=== PATIENT | male | born 1950 | race Caucasian/White ===

== ENCOUNTER 2018-11-04 11:45 | Emergency (ER) | payer MEDICARE ==
[2018-11-04 11:56] VITALS: BP 170/87
[2018-11-04] MEDS ORDERED: NORMAL SALINE 1000 ML 1,000 ML IV ONE (12:53)
[2018-11-04] MEDS ORDERED: KETOROLAC TROMETHAMINE INJ/PF 30 MG/1 ML SDV IV ONE (12:53)
--- NOTE | 2018-11-04 12:56 | ER Document Report ---
ED General - General Chief Complaint: Back Pain Stated Complaint: BACK PAIN Time Seen by Provider: 11/04/18 12:43 Mode of Arrival: Medic Information source: Patient TRAVEL OUTSIDE OF THE [place] IN LAST 30 DAYS: No - HPI Notes: Patient presents complaining of midthoracic back pain. He denies any recent falls or trauma. Says that it has been present for several days. Says it is a sharp pain. Appears moderate to severe. It appears to radiate through the upper part of his back. He says it is associated with shortness of breath. Patient does not mention any new cough or fevers. The pain appears to be worse with movement better with rest. Patient denies any GI symptoms such as nausea vomiting or diarrhea. No abdominal pain. - Related Data Allergies/Adverse Reactions: No Known Allergies Allergy (Unverified 11/04/18 11:46) Past Medical History - General Information source: Patient - Social History Smoking Status: Current Every Day Smoker Frequency of alcohol use: None Drug Abuse: None Family History: Reviewed & Not Pertinent Patient has suicidal ideation: No Patient has homicidal ideation: No Renal/ Medical History: Denies: Hx Peritoneal Dialysis Review of Systems - Review of Systems Constitutional: denies: Chills, Fever Cardiovascular: Dyspnea. denies: Chest pain Respiratory: Short of breath. denies: Cough -: Yes All other systems reviewed and negative Physical Exam - Vital signs Vitals: Temp Pulse Resp BP Pulse Ox 98.1 F 79 22 H 170/87 H 96 11/04/18 11:52 11/04/18 11:52 11/04/18 11:52 11/04/18 11:52 11/04/18 11:52 - General General appearance: Appears well, Alert - HEENT Head: Normocephalic, Atraumatic Eyes: Normal Pupils: PERRL - Respiratory Respiratory status: No respiratory distress Chest status: Nontender Breath sounds: Rhonchi Chest palpation: Normal - Cardiovascular Rhythm: Regular Heart sounds: Normal auscultation Murmur: No - Abdominal Inspection: Normal Distension: No distension Bowel sounds: Normal Tenderness: Nontender Organomegaly: No organomegaly - Back Back: Tender - Patient is tender to palpation of the upper thoracic spine. No step-offs or deformities appreciated. - Extremities General upper extremity: Normal inspection, Nontender, Normal color, Normal ROM, Normal temperature General lower extremity: Normal inspection, Nontender, Normal color, Normal ROM, Normal temperature, Normal weight bearing. No: Annette's sign - Neurological Neuro grossly intact: Yes Cognition: Normal Orientation: AAOx4 [place] Coma Scale Eye Opening: Spontaneous [place] Coma Scale Verbal: Oriented [place] Coma Scale Motor: Obeys Commands Niyah Coma Scale Total: 15 Speech: Normal Motor strength normal: LUE, RUE, LLE, RLE Sensory: Normal - Psychological Associated symptoms: Normal affect, Normal mood - Skin Skin Temperature: Warm Skin Moisture: Dry Skin Color: Normal Course - Re-evaluation Re-evalutation: 11/04/18 13:53 1 reexamined patient and nurse informed me that he had pulled his IV out and left. I went outside and found the patient sitting on the ground leaning next to a post. Patient states that he would rather go home. He states that we have not done anything for his pain. I was able to convince the patient to come back and and allow us to do further treatment. He has had IV Toradol. He has not had laboratories or x-rays yet. Patient states that he wishes he was . However patient is not actively suicidal. No evident that the patient is psychotic. There is no active psychosis. I do not feel at this time that I have grounds for involuntary commitment. 11/04/18 14:01 Nurse just informed me that patient is once again left. I am not able to locate the patient at this time. I have considered if I have grounds for involuntary commitment since the patient states that he would rather be . However pat ient states that he has felt this way for a long time. He states he is not actively suicidal and he does not have a plan. I do not feel that I have grounds for involuntary commitment at this time the patient is considered eloped. - Vital Signs Vital signs: Temp Pulse Resp BP Pulse Ox 98.1 F 79 22 H 170/87 H 96 11/04/18 11:52 11/04/18 11:52 11/04/18 11:52 11/04/18 11:52 11/04/18 11:52 - EKG Interpretation by Me EKG shows normal: Sinus rhythm Rate: Normal - 72 Rhythm: NSR [place]/QRS: No: Right axis deviation, Left axis deviation - Transfer of Care Care transferred to following provider: Crow Notes: 11/04/18 13:56 care turned over at 2pm Discharge - Discharge Clinical Impression: Thoracic back pain Qualifiers: Chronicity: acute Back pain laterality: midline Qualified Code(s): M54.6 - Pain in thoracic spine Disposition: ELOPED
--- NOTE | 2018-11-04 17:28 | EKG REPORT ---
SEVERITY:- NORMAL ECG - SINUS RHYTHM : Confirmed by: Lizet Mandel MD 04-Nov-2018 17:28:17
== END 2018-11-04 13:55 | disposition left against medical advice (07) ==
LOC: ER 11:45
DX: M54.6 Pain in thoracic spine (principal); R06.02 Shortness of breath; F17.200 Nicotine dependence, unspecified, uncomplicated; Z53.20 Procedure and treatment not carried out because of patient's decision for unspecified reasons
CPT/HCPCS: 93005; 93010; J1885; J7030; 96374; 99283

== ENCOUNTER 2019-01-25 14:02 | Inpatient (IN) | payer MEDICARE ==
--- NOTE | 2019-01-25 14:30 | ER Document Report ---
ED Medical Screen (RME) - General Chief Complaint: S/S of Possible Stroke Stated Complaint: POSSIBLE STROKE Time Seen by Provider: 01/25/19 14:24 Mode of Arrival: Wheelchair Information source: Patient Notes: Patient is a 68-year-old male with no documented past medical history as patient does not see a physician presenting with complaints of left-sided weakness that started on Friday. Patient has profound left-sided neurological deficits to the upper and lower extremity, he has left-sided facial drooping and slurred speech. Family members are at bedside with him. I have greeted and performed a rapid initial assessment of this patient. A comprehensive ED assessment and evaluation of the patient, analysis of test results and completion of the medical decision making process will be conducted by additional ED providers. I have specifically instructed the patient or family members with the patient to immediately return to any nursing staff should anything change in the patient's condition or with their chief complaint. This medical record was dictated with voice recognizing software. There may be grammatical, syntax errors that are unintended. TRAVEL OUTSIDE OF THE [place] IN LAST 30 DAYS: No - Related Data Allergies/Adverse Reactions: No Known Allergies Allergy (Unverified 11/04/18 11:46) Past Medical History - Social History Frequency of alcohol use: None Drug Abuse: None Renal/ Medical History: Denies: Hx Peritoneal Dialysis Physical Exam - Vital signs Vitals: Temp Pulse Resp BP Pulse Ox 97.4 F 110 H 16 188/117 H 95 01/25/19 14:11 01/25/19 14:11 01/25/19 14:11 01/25/19 14:11 01/25/19 14:11 Course - Vital Signs Vital signs: Temp Pulse Resp BP Pulse Ox 97.4 F 110 H 16 188/117 H 95 01/25/19 14:11 01/25/19 14:11 01/25/19 14:11 01/25/19 14:11 01/25/19 14:11
--- NOTE | 2019-01-25 15:05 | EKG REPORT ---
SEVERITY:- OTHERWISE NORMAL ECG - SINUS TACHYCARDIA : Confirmed by: Lizet Mandel MD 25-Jan-2019 15:04:24
--- NOTE | 2019-01-25 15:08 | RADIOLOGY REPORT (SQ) ---
EXAM DESCRIPTION: CT HEAD WITHOUT COMPLETED DATE/TIME: 01/25/2019 2:41 pm REASON FOR STUDY: LEFT SIDED WEAKNESS COMPARISON: None. TECHNIQUE: Axial images acquired through the brain without intravenous contrast. Images reviewed wi th bone, brain and subdural windows. Additional sagittal and coronal reconstructions were generated. Images stored on PACS. All CT scanners at this facility use dose modulation, iterative reconstruction, and/or weight based d osing when appropriate to reduce radiation dose to as low as reasonably achievable (ALARA). [facility]: Dose Right [facility]: CareDose [facility]: Dose Right [facility]: Teradose 4D [facility]: Smart Technologies RADIATION DOSE: CT Rad equipment meets quality standard of care and radiation dose reduction techniq ues were employed. CTDIvol: 53.2 mGy. DLP: 1044 mGy-cm. mGy. LIMITATIONS: None. FINDINGS: The patchy areas of hypoattenuation within the supratentorial periventricular and subcorti chalino white matter are nonspecific and could represent the sequela of chronic microvascular ischemia. There is no acute intracranial hemorrhage, vascular territorial infarct, extra-axial fluid collection , mass effect or midline shift. There is no effacement of cerebral sulci or basal subarachnoid ciste rns. The white-white matter differentiation is preserved. The caliber the ventricles is concordant w ith the degree of sulcation. The orbits and globes are intact. The paranasal sinuses and the mastoid air cells are clear. There is no fracture of the calvarium. IMPRESSION: Probable sequela of chronic microvascular ischemia without a superimposed acute intracra nial abnormality. If there is persistent clinical concern for an acute CVA correlation with MRI is r ecommended. EVIDENCE OF ACUTE STROKE: NO. COMMENT: Quality ID # [id number]: Final reports with documentation of one or more dose reduction techniques (e.g., Automated exposure control, adjustment of the mA and/or kV according to patient size, use of iterative reconstruction technique) TECHNICAL DOCUMENTATION: JOB ID: [id number] [employer] All Rights Reserved Reading location - IP/workstation name: [email or web address]
--- NOTE | 2019-01-25 15:10 | RADIOLOGY REPORT (SQ) ---
EXAM DESCRIPTION: CHEST SINGLE VIEW COMPLETED DATE/TIME: 01/25/2019 2:54 pm REASON FOR STUDY: LEFT SIDED WEAKNESS COMPARISON: None. EXAM PARAMETERS: NUMBER OF VIEWS: One view. TECHNIQUE: Single frontal radiographic view of the chest acquired. RADIATION DOSE: NA LIMITATIONS: None. FINDINGS: LUNGS AND PLEURA: No consolidation, pleural effusion or pneumothorax. MEDIASTINUM AND HILAR STRUCTURES: No mediastinal or hilar contour abnormality. HEART AND VASCULAR STRUCTURES: The cardiac silhouette and pulmonary vasculature are within normal drake its. BONES: No acute findings. HARDWARE: None in the chest. OTHER: No other finding. IMPRESSION: No acute intracranial abnormality. TECHNICAL DOCUMENTATION: JOB ID: [id number] [employer]- All Rights Reserved Reading location - IP/workstation name: [email or web address]
[2019-01-25 15:31] LABS: ABSOLUTE BASOPHILS # (AUTO) 0.1 10^3/uL (0.0-0.2); ABSOLUTE LYMPHOCYTES (AUTO) 2.8 10^3/uL (0.5-4.7); ABSOLUTE MONOCYTES (AUTO) 0.8 10^3/uL (0.1-1.4); ABSOLUTE NEUT (AUTO) 10.7 10^3/uL (1.7-8.2); BASOPHILS % (AUTO) 0.4 % (0-2); EOSINOPHILS % (AUTO) 0.1 % (0-6); HEMOGLOBIN 15.9 g/dL (13.5-17.0); LYMPHOCYTES % (AUTO) 19.6 % (13-45); MEAN CORPUSCULAR HEMOGLOBIN 31.3 pg (27.0-33.4); MEAN CORPUSCULAR HGB CONC 33.8 g/dL (32.0-36.0); MEAN CORPUSCULAR VOLUME 92 fl (80-97); MONOCYTES % (AUTO) 5.4 % (3-13); PLATELET COUNT 241 10^3/uL (150-450); RED BLOOD COUNT 5.09 10^6/uL (4.35-5.55); RED CELL DISTRIBUTION WIDTH 14.1 % (11.5-14.0); SEGMENTED NEUTROPHILS % (AUTO) 74.5 % (42-78); TOTAL CELLS COUNTED % (AUTO) 100 %; WHITE BLOOD COUNT 14.4 10^3/uL (4.0-10.5)
[2019-01-25 15:37] LABS: INTERNATIONAL RATION (INR) 1.02; PARTIAL THROMBOPLASTIN TIME 26.7 SEC (23.5-35.8)
[2019-01-25 15:40] LABS: PROTHROMBIN TIME 13.4 SEC (11.4-15.4)
[2019-01-25 15:54] LABS: ALBUMIN 4.3 g/dL (3.5-5.0); ALKALINE PHOSPHATASE 146 U/L (38-126); ANION GAP 11 (5-19); ASPARTATE AMINO TRANSFERASE 146 U/L (17-59); BILIRUBIN,DIRECT 0.3 mg/dL (0.0-0.4); BLOOD UREA NITROGEN 10 mg/dL (7-20); CALCIUM 9.7 mg/dL (8.4-10.2); CARBON DIOXIDE 31 mmol/L (22-30); CHLORIDE 95 mmol/L (98-107); CREATINE KINASE 342 U/L (55-170); GLUCOSE 105 mg/dL (75-110); POTASSIUM 4.1 mmol/L (3.6-5.0); TOTAL PROTEIN 8.4 g/dL (6.3-8.2)
[2019-01-25 16:06] LABS: CREATINE KINASE MB 4.88 ng/mL (<4.55)
[2019-01-25 16:10] LABS: TROPONIN I 0.19 ng/mL
[2019-01-25] MEDS ORDERED: ONDANSETRON HCL INJ/PF 4 MG/2 ML SDV IV ONE (18:07)
--- NOTE | 2019-01-25 18:11 | ER Document Report ---
ED General - General Chief Complaint: S/S of Possible Stroke Stated Complaint: POSSIBLE STROKE Time Seen by Provider: 01/25/19 14:24 Mode of Arrival: Wheelchair Notes: Patient is a 68-year-old male who presents the emergency department with left- sided weakness. Patient states that his symptoms started on Friday and yesterday his symptoms got progressively worse. Patient states that he fell today. He was able to lean on a wall and slid down it. He sustained an abrasion to the area. Patient also states that he felt nauseous. TRAVEL OUTSIDE OF THE [place] IN LAST 30 DAYS: No - Related Data Allergies/Adverse Reactions: No Known Allergies Allergy (Unverified 11/04/18 11:46) Past Medical History - General Information source: Patient - Social History Smoking Status: Current Every Day Smoker Frequency of alcohol use: None Drug Abuse: None Family History: Reviewed & Not Pertinent Patient has suicidal ideation: No Patient has homicidal ideation: No Renal/ Medical History: Denies: Hx Peritoneal Dialysis Review of Systems - Review of Systems Notes: REVIEW OF SYSTEMS: CONSTITUTIONAL : Denies recent illness. Denies recent unintentional weight loss. Denies fever, chills, or sweats. EENT: Denies eye, ear, throat, or mouth pain, discharge, or symptoms. Denies nasal or sinus congestion. CARDIOVASCULAR: Denies chest pain. RESPIRATORY: Denies shortness of breath, cough, congestion, difficulty breathing, or wheezing. GASTROINTESTINAL: Denies nausea, vomiting, and diarrhea. Denies abdominal pain. Denies constipation. GENITOURINARY: Denies difficulty urinating, burning, blood in urine, urgency or frequency. MUSCULOSKELETAL: Denies neck and back pain. Denies joint pain or swelling. SKIN: Denies rash, itchiness, or lesions HEMATOLOGIC : Denies easy bruising or bleeding. LYMPHATIC: Denies swollen, painful, enlarged glands. NEUROLOGICAL: PSYCHIATRIC: Denies stress, anxiety, alteration in sleep patterns, or depression. All other systems reviewed and negative. Physical Exam - Vital signs Vitals: Temp Pulse Resp BP Pulse Ox 97.4 F 110 H 16 188/117 H 95 01/25/19 14:11 01/25/19 14:11 01/25/19 14:11 01/25/19 14:11 01/25/19 14:11 - Notes Notes: PHYSICAL EXAMINATION: GENERAL: Appears well, healthy, well-nourished, no acute distress. HEAD: Normocephalic, atraumatic. EYES: PERRL, conjunctiva normal, all extraocular movements intact, sclera nonicteric ENT: Dry mucous membranes. NECK: Supple, no noticeable swelling, redness, rash. Normal range of motion. LUNGS: Equal breath sounds bilaterally and clear to auscultation. No wheezes rales or rhonchi. CARDIOVASCULAR: S1-S2, regular rate, regular rhythm. Radial pulses 2+, normal. ABDOMEN: Normoactive bowel sounds. Soft, nontender, no guarding, no rebound tenderness, and no masses palpated. EXTREMITIES: Flaccid left upper and lower extremities. Weak upper right and lower right extremities NEUROLOGICAL: Left-sided facial droop. 0 out of 5 strength on left side and flaccid. 3/5 strength on the right side. PSYCH: Normal mood, normal affect. SKIN: Warm, dry. No rash, lesions, ulcerations noted. Normal skin turgor. Course - Re-evaluation Re-evalutation: 01/25/19 18:11 Patient has some microvascular changes. Chest x-ray is normal. Patient has a leukocytosis of 14,000. Patient is mildly hypo-knee treatment. This is most likely due to dehydration. Troponin is indeterminate. Patient is denying any chest pain at this time. Awaiting on urinalysis. Due to the patient having left-sided flaccidness, I will call hospitalist for admission. 01/25/19 18:15 I spoke with Velvet Mills NP. Patient will be admitted to [facility]. - Vital Signs Vital signs: Temp Pulse Resp BP Pulse Ox 97.4 F 110 H 25 H 174/88 H 96 01/25/19 14:11 01/25/19 14:11 01/25/19 20:14 01/25/19 20:14 01/25/19 20:14 - Laboratory Result Diagrams: 01/25/19 15:18 01/25/19 15:18 Laboratory results interpreted by me: 01/25/19 01/25/19 01/25/19 15:18 15:18 15:18 WBC 14.4 H RDW 14.1 H Absolute Neuts (auto) 10.7 H Sodium 136.7 L Chloride 95 L Carbon Dioxide 31 H AST 146 H Alkaline Phosphatase 146 H Creatine Kinase 342 H CK-MB (CK-2) 4.88 H Total Protein 8.4 H - EKG Interpretation by Me Additional EKG results interpreted by me: 01/25/19 18:25 Sinus tachycardia. Rate 100. CO 132; QRS 76; QT 368; QTc 475. No ST elevations or depressions noted. Discharge - Discharge Clinical Impression: Stroke Qualifiers: CVA mechanism: unspecified Qualified Code(s): I63.9 - Cerebral infarction, unspecified Condition: Stable Disposition: HOME, SELF-CARE Admitting Provider: Mei (Hospitalist) Unit Admitted: [facility]
[2019-01-25] MEDS ORDERED: HYDRALAZINE HCL INJ/PF 20 MG/1 ML SDV IV ONE (18:20)
[2019-01-25] MEDS ORDERED: ONDANSETRON 4 MG TAB.RAPDIS PO PRN (18:26)
[2019-01-25] MEDS ORDERED: MAGNESIUM HYDROXIDE SUSP 30 ML UDCUP PO PRN (18:26)
[2019-01-25] MEDS ORDERED: LABETALOL HCL INJ 20 MG/4 ML DISP.SYRIN IV PRN (18:26)
[2019-01-25] MEDS ORDERED: ACETAMINOPHEN 325 MG TABLET PO PRN (18:26)
[2019-01-25] MEDS ORDERED: DOCUSATE SODIUM 100 MG CAPSULE PO PRN (18:26)
--- NOTE | 2019-01-25 19:15 | PDOC H&P ---
History of Present Illness Admission Date/PCP: 01/25/19 18:31 Patient complains of: Slurred speech, left-sided weakness, fall History of Present Illness: KASHMIR CASTRO is a 68 year old male with a limited past medical history secondary to poor healthcare utilization, but known to have hypertension, and tobacco dependence with continuous use. Patient presented to the emergency department today after a fall at home when he was unable to get back up. Family members report that he has had proximately 2 months of slurred speech and progressively worsening weakness. However, his left-sided weakness is significantly worse from his baseline. Unknown onset as he was last seen over a week ago. Patient reports that he began having falls on Friday. Evaluation in the emergency department revealed tachycardia 110, hypertension 188/117 leukocytosis (WBCs 14.4), normal coags, slight hyponatremia (136.7), elevated bicarb at 31, normal renal function, mildly elevated LFTs (AST 146, alk phos 146, ALT 96), CK 342, and an elevated troponin of 0.190. Chest x-ray is benign. EKG shows normal sinus rhythm without ST segment changes. Head CT revealed chronic microvascular ischemic changes and was negative for acute CVA. He is referred to the hospitalist service for admission and management of the above-stated complaints and findings. Past Medical History Cardiac Medical History: Reports: Hyperlipidema, Hypertension Pulmonary Medical History: Reports: None EENT Medical History: Reports: None Neurological Medical History: Reports: None Endocrine Medical History: Reports: None Renal/ Medical History: Reports: None Malignancy Medical History: Reports: None GI Medical History: Reports: Gastroesophageal Reflux Disease Musculoskeltal Medical History: Reports: None Psychiatric Medical History: Reports: Tobacco Dependency Traumatic Medical History: Reports: None Hematology: Reports: None Infectious Medical History: Reports: None Past Surgical History Past Surgical History: Reports: Orthopedic Surgery Social History Information Source: Patient, Relative Lives with: Alone Smoking Status: Current Every Day Smoker Cigarettes Packs Per Day: 0.5 Frequency of Alcohol Use: Rare Hx Recreational Drug Use: No Drugs: None Hx Prescription Drug Abuse: No - Advance Directive Resuscitation Status: Do Not Resuscitate Surrogate healthcare decision maker:: The patient's son, Kashmir Castro, Family History Family History: Reviewed & Not Pertinent Parental Family History Reviewed: Yes Children Family History Reviewed: Yes Sibling(s) Family History Reviewed.: Yes Medication/Allergy Allergies/Adverse Reactions: No Known Allergies Allergy (Unverified 11/04/18 11:46) Review of Systems Constitutional: PRESENT: anorexia, weakness. ABSENT: chills, fever(s), headache(s), weight gain, weight loss Eyes: ABSENT: visual disturbances Ears: ABSENT: hearing changes Cardiovascular: ABSENT: chest pain, dyspnea on exertion, edema, orthropnea, palpitations Respiratory: ABSENT: cough, hemoptysis Gastrointestinal: PRESENT: dysphagia, nausea. ABSENT: abdominal pain, constipation, diarrhea, hematemesis, hematochezia, vomiting Genitourinary: ABSENT: dysuria, hematuria Musculoskeletal: ABSENT: joint swelling Integumentary: ABSENT: rash, wounds Neurological: PRESENT: as per HPI, abnormal speech, focal weakness, frequent falls, lack of coordination, weakness. ABSENT: abnormal gait, confusion, dizziness, syncope Psychiatric: ABSENT: anxiety, depression, homidical ideation, suicidal ideation Endocrine: ABSENT: cold intolerance, heat intolerance, polydipsia, polyuria Hematologic/Lymphatic: ABSENT: easy bleeding, easy bruising Physical Exam Vital Signs: Temp Pulse Resp BP Pulse Ox 97.4 F 110 H 16 188/117 H 95 01/25/19 14:11 01/25/19 14:11 01/25/19 14:11 01/25/19 14:11 01/25/19 14:11 Intake & Output 01/24/19 01/25/19 01/26/19 06:59 06:59 06:59 Weight 58.967 kg General appearance: PRESENT: no acute distress, cooperative, disheveled, thin, well-developed Head exam: PRESENT: atraumatic, normocephalic Eye exam: PRESENT: conjunctiva pink, EOMI, PERRLA. ABSENT: scleral icterus Ear exam: PRESENT: normal external ear exam Mouth exam: PRESENT: moist, tongue midline Teeth exam: PRESENT: edentulous Neck exam: ABSENT: carotid bruit, JVD, lymphadenopathy, thyromegaly Respiratory exam: PRESENT: clear to auscultation kourtney, symmetrical, unlabored. ABSENT: rales, rhonchi, wheezes Cardiovascular exam: PRESENT: RRR, +S1, +S2. ABSENT: diastolic murmur, rubs, s ystolic murmur Pulses: PRESENT: normal dorsalis pedis pul Vascular exam: PRESENT: normal capillary refill GI/Abdominal exam: PRESENT: normal bowel sounds, soft. ABSENT: distended, guarding, mass, organolmegaly, rebound, tenderness Rectal exam: PRESENT: deferred Extremities exam: PRESENT: full ROM. ABSENT: calf tenderness, clubbing, pedal edema Neurological exam: PRESENT: alert, awake, oriented to person, oriented to place, oriented to time, oriented to situation, other - Slurred speech with left-sided droop, patient also with sided weakness: right starch mangle tender 5/5, left starch mangle tender 3/5, right dorsiflexion 3/5, left dorsiflexion 1/5. ABSENT: motor sensory deficit Psychiatric exam: PRESENT: appropriate affect, normal mood. ABSENT: homicidal ideation, suicidal ideation Skin exam: PRESENT: dry, intact, warm. ABSENT: cyanosis, rash Results Laboratory Results: 01/25/19 15:18 01/25/19 15:18 01/25/19 01/25/19 15:18 15:18 WBC 14.4 H RBC 5.09 Hgb 15.9 Hct 47.0 MCV 92 MCH 31.3 MCHC 33.8 RDW 14.1 H Plt Count 241 Seg Neutrophils % 74.5 Sodium 136.7 L Potassium 4.1 Chloride 95 L Carbon Dioxide 31 H Anion Gap 11 BUN 10 Creatinine 0.75 Est GFR ( Amer) > 60 Glucose 105 Calcium 9.7 Total Bilirubin 1.0 AST 146 H Alkaline Phosphatase 146 H Total Protein 8.4 H Albumin 4.3 01/25/19 01/25/19 15:18 15:18 Creatine Kinase 342 H CK-MB (CK-2) 4.88 H Troponin I 0.190 Impressions: Chest X-Ray 01/25/19 14:25 IMPRESSION: No acute intracranial abnormality. Head CT 01/25/19 14:25 IMPRESSION: Probable sequela of chronic microvascular ischemia without a supe rimposed acute intracranial abnormality. If there is persistent clinical concern for an acute CVA correlation with MRI is recommended. EVIDENCE OF ACUTE STROKE: NO. Assessment and Plan - Diagnosis (1) CVA (cerebral vascular accident) Qualifiers: CVA mechanism: unspecified Qualified Code(s): I63.9 - Cerebral infarction, unspecified Is this a current diagnosis for this admission?: Yes Plan: Possible CVA as patient presents with slurred speech and left-sided weakness, worsened approximately [address] is negative. Head MRI pending. Carotid Doppler pending. Check lipid panel and A1c with a.m. lab work. Patient is admitted to [facility] on continuous cardiac telemetry. Daily aspirin, Plavix, statin therapy. The patient was not on daily aspirin therapy prior to admission. PT/OT/ST consultations. Discharge planning consulted. (2) Slurred speech Is this a current diagnosis for this admission?: Yes Plan: Secondary to #1. Evaluation and management as above. (3) Left-sided weakness Is this a current diagnosis for this admission?: Yes Plan: Secondary to #1. Evaluation and management as above. (4) Hypertension Is this a current diagnosis for this admission?: Yes Plan: Permissive hypertension x24 hours secondary to presumed acute CVA. IV labetalol as needed for blood pressure control. The patient is not on home antihypertensive therapies. (5) Tobacco dependence Is this a current diagnosis for this admission?: Yes Plan: Smoking cessation encouraged. Nicotine or placement therapies provided. (6) Elevated LFTs Is this a current diagnosis for this admission?: Yes Plan: Likely secondary to dehydration; trial IV fluids. Serum EtOH pending. Follow-up chemistry. (7) Elevated troponin Is this a current diagnosis for this admission?: Yes Plan: Troponin is elevated to 0.190. He adamantly denies chest pain. EKG shows sinus rhythm without ST segment changes. We will monitor on continuous cardiac telemetry. Daily aspirin and statin therapy. Trend troponins. (8) Falls Qualifiers: Encounter type: initial encounter Qualified Code(s): W19.XXXA - Unspecified fall, initial encounter Is this a current diagnosis for this admission?: Yes Plan: Secondary to #1. We will also check UDS and serum EtOH. PT/OT consultation pending. Fall risk. - Time Time Spent with patient: 35 or more minutes Smoking Cessation Education: 3 to 10 minutes Medications reviewed and adjusted accordingly: Yes Anticipated discharge: Home with Homehealth Within: within 48 hours
--- NOTE | 2019-01-25 19:57 | RADIOLOGY REPORT (SQ) ---
EXAM DESCRIPTION: FOREARM LEFT COMPLETED DATE/TIME: 01/25/2019 6:28 pm REASON FOR STUDY: fall COMPARISON: None. NUMBER OF VIEWS: Two views. TECHNIQUE: Two radiographic images acquired of the left forearm, including elbow and wrist in at [address] st one projection. LIMITATIONS: None. FINDINGS: MINERALIZATION: Normal. BONES: No acute fracture. No worrisome bone lesions. SOFT TISSUES: No obvious swelling. Metallic bb in the lateral mid forearm soft tissue. OTHER: No other significant finding. IMPRESSION: No fracture. TECHNICAL DOCUMENTATION: JOB ID: [id number] [email or web address]- All Rights Reserved Reading location - IP/workstation name: [email or web address]
[2019-01-25 20:37] LABS: APPEARANCE,URINE CLEAR; BILIRUBIN,URINE NEGATIVE (NEGATIVE); COLOR,URINE YELLOW; GLUCOSE, URINE NEGATIVE (NEGATIVE); KETONES,URINE NEGATIVE (NEGATIVE); PROTEIN,URINE 30 mg/dL (NEGATIVE); URINE SPECIFIC GRAVITY 1.016; UROBILINOGEN,URINE NEGATIVE mg/dL (<2.0)
[2019-01-25 20:47] LABS: URINE AMPHETAMINES SCREEN NEGATIVE; URINE BARBITURATES SCREEN NEGATIVE; URINE BENZODIAZEPINES SCREEN NEGATIVE; URINE COCAINE SCREEN NEGATIVE; URINE MARIJUANA (THC) SCREEN UNCONFIRMED POSITIVE; URINE METHADONE SCREEN NEGATIVE; URINE PHENCYCLIDINE SCREEN NEGATIVE
[2019-01-25] MEDS: NORMAL SALINE 1000 ML 1,000 ML IV PRN (22:02)
[2019-01-25] MEDS: ATORVASTATIN CALCIUM 80 MG TABLET PO SCH (23:10)
--- NOTE | 2019-01-25 23:26 | RADIOLOGY REPORT (SQ) ---
EXAM DESCRIPTION: MR BRAIN WITHOUT IV CONTRAST COMPLETED DATE/TME: 01/25/2019 00:00 COMPARISON: 01/25/2019 CT TECHNIQUE: Multiplanar images of the brain were obtained without the administration of intravenous contrast FINDINGS: The ventricles and sulci are prominent consistent with atrophy. No evidence of midline shift. Symmetric flow voids in the distal carotid arteries and vertebral arteries. Motion artifact significantly limits evaluation. There is periventricular white matter disease and microvascular ischemic change. Areas of previous infarct in the left centrum semiovale and shannon radiata as well as in the right basal ganglia. Restricted diffusion in the right thalamus and small focus in the left basal ganglia/shannon radiata. These areas are dark on the ADC sequence consistent with areas of acute infarct. IMPRESSION: Study degraded by motion Two small foci of acute infarct one in the right thalamus and one in the left basal ganglia/shannon radiata. Dr. Pavon was called and notified of findings at 10:25 PM central time. Atrophy with periventricular white matter disease and microvascular ischemic changes as well as areas of previous infarct
[2019-01-25] MEDS ORDERED: DEXTROSE 40% GEL 15 GM TUBE PO PRN (23:30)
[2019-01-25] MEDS ORDERED: GLUCAGON,HUMAN RECOMB 1 MG INJ IM PRN (23:30)
[2019-01-25] MEDS ORDERED: DEXTROSE 50%-WATER SYRINGE 12.5 GM/25 ML DOSE IV PRN (23:30)
[2019-01-25] MEDS ORDERED: DEXTROSE 40% GEL 15 GM TUBE X 2 PO PRN (23:30)
[2019-01-25] MEDS ORDERED: DEXTROSE 50%-WATER SYRINGE 25 GM/50 ML DOSE IV PRN (23:30)
[2019-01-25] MEDS: HEPARIN SOD (PORCINE) 5,000 UNIT/ML 1 ML VIAL SUBCUT SCH (23:45)
--- NOTE | 2019-01-26 01:26 | RADIOLOGY REPORT (SQ) ---
EXAM DESCRIPTION: [facility]: US CAROTID DOPPLER BILATERAL CLINICAL HISTORY: 68 years Male; CVA TECHNIQUE: Grayscale and Doppler (color and pulse) ultrasound of bilateral carotid arteries and the vertebral arteries was performed. Stenosis assessment based on Carotid Artery Stenosis: Jett-Scale and Doppler US DiagnosisSociety of Radiologists in Ultrasound Consensus Conference; Radiology, Jan 2003, Vol. [id number] COMPARISON: None. FINDINGS: All velocities in cm/sec. Right carotid: Morphology: Echogenic plaque at the bifurcation ICA velocities: Proximal 115/29, distal 114/31 (Normal < 124/40) CCA PSV: Proximal 96, distal 86 ICA/CCA PSV ratio: 1.3 (Normal < 2.0) ECA: Patent, PSV 124 Left carotid: Morphology: Echogenic plaque at the ICA origin ICA velocities: Proximal 143/26, distal 206/43 (Normal < 124/40) CCA PSV: Proximal 86, distal 85 ICA/CCA PSV ratio: 2.4 (Normal < 2.0) ECA: Patent, PSV 91 Right vertebral: Antegrade, PSV 95 Left vertebral: Antegrade, PSV 63 IMPRESSION: 1. Atherosclerosis 2. 50-69% stenosis of the proximal left ICA 3. No stenosis of the right carotid artery 4. Antegrade flow in both vertebral arteries.
[2019-01-26] MEDS: HEPARIN SOD (PORCINE) 5,000 UNIT/ML 1 ML VIAL SUBCUT SCH ×3 (05:18→21:26)
[2019-01-26 06:42] LABS: MEAN CORPUSCULAR VOLUME 92 fl (80-97)
[2019-01-26 06:55] LABS: HEMATOCRIT 39.9 % (37.9-51.0); MEAN CORPUSCULAR HEMOGLOBIN 31.3 pg (27.0-33.4); MEAN CORPUSCULAR HGB CONC 34.1 g/dL (32.0-36.0); PLATELET COUNT 185 10^3/uL (150-450); RED BLOOD COUNT 4.35 10^6/uL (4.35-5.55); RED CELL DISTRIBUTION WIDTH 13.9 % (11.5-14.0); WHITE BLOOD COUNT 10.4 10^3/uL (4.0-10.5)
[2019-01-26 06:56] LABS: HEMOGLOBIN 13.6 g/dL (13.5-17.0)
[2019-01-26 07:05] LABS: ALBUMIN 3.3 g/dL (3.5-5.0); ALKALINE PHOSPHATASE 103 U/L (38-126); ANION GAP 9 (5-19); ASPARTATE AMINO TRANSFERASE 103 U/L (17-59); BILIRUBIN,DIRECT 0.4 mg/dL (0.0-0.4); BLOOD UREA NITROGEN 11 mg/dL (7-20); CARBON DIOXIDE 25 mmol/L (22-30); CHLORIDE 105 mmol/L (98-107); CHOLESTEROL 170.01 mg/dL (0-200); GLUCOSE 94 mg/dL (75-110); POTASSIUM 3.9 mmol/L (3.6-5.0); TOTAL PROTEIN 6.6 g/dL (6.3-8.2); TRIGLYCERIDES 92 mg/dL (<150)
[2019-01-26 07:16] LABS: DIRECT LDL 121 mg/dL (<100)
[2019-01-26] MEDS: CLOPIDOGREL BISULFATE 75 MG TABLET PO SCH (09:12)
[2019-01-26] MEDS: NORMAL SALINE 1000 ML 1,000 ML IV PRN ×2 (09:12→15:58)
[2019-01-26] MEDS: ASPIRIN 81 MG TABLET, ENT COATED PO SCH (09:12)
[2019-01-26] MEDS: NICOTINE 14 MG/24 HR PATCH.TD24 TD SCH (09:12)
--- NOTE | 2019-01-26 11:27 | PDOC PROGRESS REPORT ---
Subjective Progress Note for:: 01/26/19 Subjective:: The patient is resting in bed. He does not appear to be in distress. He is asking me if he needs an operation. He wonders if an operation will fix what is wrong. I explained that he had a stroke in 2 different areas of the brain, one on the left and one on the right. I explained that the one on the right is what is causing the weakness on his left side. He is worried about his acute status and recovery. Reason For Visit: STROKE Physical Exam Vital Signs: Temp Pulse Resp BP Pulse Ox 97.9 F 95 16 147/80 H 94 01/26/19 07:57 01/26/19 08:00 01/26/19 08:00 01/26/19 08:00 01/26/19 08:00 Intake & Output 01/25/19 01/26/19 01/27/19 06:59 06:59 06:59 Intake Total 0 1000 Output Total 0 Balance 0 1000 Weight 119.7 kg General appearance: PRESENT: no acute distress, cooperative, thin, well-developed Head exam: PRESENT: atraumatic, normocephalic Eye exam: PRESENT: conjunctiva pink. ABSENT: scleral icterus Ear exam: PRESENT: normal external ear exam. ABSENT: bleeding, drainage Respiratory exam: PRESENT: clear to auscultation kourtney, symmetrical, unlabored. ABSENT: prolonged expiratory phas, rales, rhonchi, tachypnea, wheezes Cardiovascular exam: PRESENT: +S1, +S2, tachycardia. ABSENT: diastolic murmur, systolic murmur GI/Abdominal exam: PRESENT: normal bowel sounds, soft. ABSENT: distended, tenderness Rectal exam: PRESENT: deferred Extremities exam: ABSENT: full ROM, pedal edema Musculoskeletal exam: PRESENT: normal inspection Neurological exam: PRESENT: alert, awake, oriented to person, oriented to place, oriented to situation, CN II-XII grossly intact, motor sensory deficit - The patient's right arm and leg seem fairly intact. 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 He cannot lift the left leg off of the bed. Psychiatric exam: PRESENT: flat affect. ABSENT: agitated, anxious Focused psych exam: ABSENT: delusional, restlessness Skin exam: PRESENT: dry, warm, other - Several tattoos. ABSENT: rash Results Laboratory Results: 01/26/19 06:30 01/26/19 06:30 01/25/19 01/25/19 01/25/19 15:18 15:18 15:18 WBC 14.4 H RBC 5.09 Hgb 15.9 Hct 47.0 MCV 92 MCH 31.3 MCHC 33.8 RDW 14.1 H Plt Count 241 Seg Neutrophils % 74.5 Sodium 136.7 L Potassium 4.1 Chloride 95 L Carbon Dioxide 31 H Anion Gap 11 BUN 10 Creatinine 0.75 Est GFR ( Amer) > 60 Glucose 105 Calcium 9.7 Total Bilirubin 1.0 AST 146 H Alkaline Phosphatase 146 H Total Protein 8.4 H Albumin 4.3 Triglycerides Cholesterol LDL Cholesterol Direct VLDL Cholesterol HDL Cholesterol Lipase 198.6 Urine Color Urine Appearance Urine pH Ur Specific Rumson Urine Protein Urine Glucose (UA) Urine Ketones Urine Blood Urine RBC (Auto) 01/25/19 01/26/19 01/26/19 19:39 06:30 06:30 WBC 10.4 RBC 4.35 Hgb 13.6 D Hct 39.9 MCV 92 MCH 31.3 MCHC 34.1 RDW 13.9 Plt Count 185 Seg Neutrophils % Sodium 138.7 Potassium 3.9 Chloride 105 Carbon Dioxide 25 Anion Gap 9 BUN 11 Creatinine 0.80 Est GFR ( Amer) > 60 Glucose 94 Calcium 9.0 Total Bilirubin 1.0 AST 103 H Alkaline Phosphatase 103 Total Protein 6.6 Albumin 3.3 L Triglycerides 92 Cholesterol 170.01 LDL Cholesterol Direct 121 H VLDL Cholesterol 18.0 HDL Cholesterol 34 L Lipase Urine Color YELLOW Urine Appearance CLEAR Urine pH 7.0 Ur Specific Rumson 1.016 Urine Protein 30 H Urine Glucose (UA) NEGATIVE Urine Ketones NEGATIVE Urine Blood NEGATIVE Urine RBC (Auto) 1 01/25/19 01/25/19 01/25/19 15:18 15:18 19:42 Creatine Kinase 342 H CK-MB (CK-2) 4.88 H Troponin I 0.190 0.133 01/26/19 01/26/19 01:29 06:30 Creatine Kinase CK-MB (CK-2) Troponin I 0.115 0.110 Impressions: Head MRI 01/25/19 00:00 IMPRESSION: Study degraded by motion Two small foci of acute infarct one in the right thalamus and one in the left basal ganglia/shannon radiata. Dr. Pavon was called and notified of findings at 10:25 PM central time. Atrophy with periventricular white matter disease and microvascular ischemic changes as well as areas of previous infarct Chest X-Ray 01/25/19 14:25 IMPRESSION: No acute intracranial abnormality. Head CT 01/25/19 14:25 IMPRESSION: Probable sequela of chronic microvascular ischemia without a superimposed acute intracranial abnormality. If there is persistent clinical concern for an acute CVA correlation with MRI is recommended. EVIDENCE OF ACUTE STROKE: NO. Forearm X-Ray 01/25/19 18:07 IMPRESSION: No fracture. Carotid Doppler Study 01/25/19 18:26 IMPRESSION: 1. Atherosclerosis 2. 50-69% stenosis of the proximal left ICA 3. No stenosis of the right carotid artery 4. Antegrade flow in both vertebral arteries. Assessment and Plan - Diagnosis (1) CVA (cerebral vascular accident) Qualifiers: CVA mechanism: unspecified Qualified Code(s): I63.9 - Cerebral infarction, unspecified Is this a current diagnosis for this admission?: Yes Plan: 01/26/2019-the patient has actually had 2 strokes. One on the right one on the left. Please see the MRI report. He predominately has left-sided weakness. ysical, patient and speech therapies will be seeing the patient. He thinks function in his hand is slightly improved. (2) Slurred speech Is this a current diagnosis for this admission?: Yes Plan: 01/26/2019-secondary to stroke. Will be seen by speech therapy. (3) Left-sided weakness Is this a current diagnosis for this admission?: Yes Plan: 01/26/2019-secondary to stroke. Physical therapy has been consulted. (4) Hypertension Qualifiers: Hypertension type: essential hypertension Qualified Code(s): I10 - Essential (primary) hypertension Is this a current diagnosis for this admission?: Yes Plan: 01/26/2019-we will initiate losartan. 50 mg has been ordered. We will continue to monitor blood pressure. (5) Tobacco dependence Is this a current diagnosis for this admission?: Yes Plan: 01/26/2019-nicotine patch (6) Elevated LFTs Is this a current diagnosis for this admission?: Yes Plan: 01/26/2019-improved with IV fluids. See remarkable negative. Could be related to prior drinking. Continue to monitor. (7) Elevated troponin Is this a current diagnosis for this admission?: Yes Plan: 19-likely related to strain from hypertension and tachycardia. No acute EKG changes. Conservative treatment. (8) Falls Qualifiers: Encounter type: initial encounter Qualified Code(s): W19.XXXA - Unspecified fall, initial encounter Is this a current diagnosis for this admission?: Yes Plan: 01/26/2019-await physical therapy evaluation. - Time Time Spent with patient: 15-24 minutes Medications reviewed and adjusted accordingly: Yes
[2019-01-26] MEDS ORDERED: MAG HYDROX/AL HYDROX/SIMETH SUSP 30 ML UDCUP ONE (21:24)
[2019-01-26] MEDS ORDERED: MAG HYDROX/AL HYDROX/SIMETH SUSP 30 ML UDCUP PO PRN (21:26)
[2019-01-26] MEDS: ATORVASTATIN CALCIUM 80 MG TABLET PO SCH (21:26)
[2019-01-26] MEDS: LABETALOL HCL INJ 20 MG/4 ML DISP.SYRIN IV PRN (21:28)
[2019-01-27] MEDS: NORMAL SALINE 1000 ML 1,000 ML IV PRN ×2 (00:16→09:04)
[2019-01-27] MEDS: HEPARIN SOD (PORCINE) 5,000 UNIT/ML 1 ML VIAL SUBCUT SCH ×3 (05:52→21:25)
[2019-01-27] MEDS: ASPIRIN 81 MG TABLET, ENT COATED PO SCH (09:03)
[2019-01-27] MEDS: CLOPIDOGREL BISULFATE 75 MG TABLET PO SCH (09:03)
[2019-01-27] MEDS: NICOTINE 14 MG/24 HR PATCH.TD24 TD SCH (09:04)
--- NOTE | 2019-01-27 10:54 | PDOC PROGRESS REPORT ---
Subjective Progress Note for:: 01/27/19 Subjective:: Patient was sleeping but awakens easily. He continues to ask when he can leave the hospital. He did admit to me that he will stop smoking. I explained that with his significant deficits on the left side he will have to go to senior living prior to consideration of going home. He does live in a camper by himself. Reason For Visit: CVA Physical Exam Vital Signs: Temp Pulse Resp BP Pulse Ox 97.6 F 64 16 192/76 H 97 01/27/19 08:29 01/27/19 08:29 01/27/19 08:29 01/27/19 08:29 01/27/19 08:29 Intake & Output 01/26/19 01/27/19 01/28/19 06:59 06:59 06:59 Intake Total 0 2946 1000 Output Total 0 1450 Balance 0 1496 1000 Weight 119.7 kg 53.9 kg General appearance: PRESENT: no acute distress, cooperative, thin, well- developed Head exam: PRESENT: atraumatic, normocephalic Eye exam: PRESENT: conjunctiva pink. ABSENT: scleral icterus Ear exam: PRESENT: normal external ear exam. ABSENT: bleeding, drainage Teeth exam: PRESENT: poor dentation Respiratory exam: PRESENT: clear to auscultation kourtney, symmetrical, unlabored. ABSENT: rales, rhonchi, tachypnea, wheezes Cardiovascular exam: PRESENT: RRR, +S1, +S2 GI/Abdominal exam: PRESENT: normal bowel sounds, soft. ABSENT: distended, tenderness Rectal exam: PRESENT: deferred Extremities exam: ABSENT: joint swelling, pedal edema Musculoskeletal exam: ABSENT: deformity, full ROM Neurological exam: PRESENT: alert, awake, oriented to person, oriented to place, oriented to situation, CN II-XII grossly intact, motor sensory deficit - As noted before left arm slow but does not have significant assembler semiconductor strength at this time. Still with dense deficits in the left lower leg. Psychiatric exam: PRESENT: appropriate affect. ABSENT: agitated, anxious Focused psych exam: ABSENT: delusional, restlessness Skin exam: PRESENT: dry, warm. ABSENT: rash Results Laboratory Results: 01/26/19 06:30 01/26/19 06:30 01/25/19 01/25/19 01/25/19 15:18 15:18 19:42 Creatine Kinase 342 H CK-MB (CK-2) 4.88 H Troponin I 0.190 0.133 01/26/19 01/26/19 01:29 06:30 Creatine Kinase CK-MB (CK-2) Troponin I 0.115 0.110 Impressions: Head MRI 01/25/19 00:00 IMPRESSION: Study degraded by motion Two small foci of acute infarct one in the right thalamus and one in the left basal ganglia/shannon radiata. Dr. Pavon was called and notified of findings at 10:25 PM central time. Atrophy with periventricular white matter disease and microvascular ischemic changes as well as areas of previous infarct Chest X-Ray 01/25/19 14:25 IMPRESSION: No acute intracranial abnormality. Head CT 01/25/19 14:25 IMPRESSION: Probable sequela of chronic microvascular ischemia without a superimposed acute intracranial abnormality. If there is persistent clinical concern for an acute CVA correlation with MRI is recommended. EVIDENCE OF ACUTE STROKE: NO. Forearm X-Ray 01/25/19 18:07 IMPRESSION: No fracture. Carotid Doppler Study 01/25/19 18:26 IMPRESSION: 1. Atherosclerosis 2. 50-69% stenosis of the proximal left ICA 3. No stenosis of the right carotid artery 4. Antegrade flow in both vertebral arteries. Assessment and Plan - Diagnosis (1) CVA (cerebral vascular accident) Qualifiers: CVA mechanism: unspecified Qualified Code(s): I63.9 - Cerebral infarction, unspecified Is this a current diagnosis for this admission?: Yes Plan: 01/26/2019-the patient has actually had 2 strokes. One on the right one on the left. Please see the MRI report. He predominately has left-sided weakness. Physical, patient and speech therapies will be seeing the patient. He thinks function in his hand is slightly improved. 01/27/2019-reviewed the case with physical therapy. He does have significant deficits of his left arm and more so with his left leg. He lives in a camper and has to walk up steps to get into the cane for he will bend to maximize recovery. (2) Slurred speech Is this a current diagnosis for this admission?: Yes Plan: 01/26/2019-secondary to stroke. Will be seen by speech therapy. 01/27/2019-seems to be improving. Continues speech therapy (3) Left-sided weakness Is this a current diagnosis for this admission?: Yes Plan: 01/26/2019-secondary to stroke. Physical therapy has been consulted. 01/27/2019-continue physical and occupational therapy (4) Hypertension Qualifiers: Hypertension type: essential hypertension Qualified Code(s): I10 - Essential (primary) hypertension Is this a current diagnosis for this admission?: Yes Plan: 01/26/2019-we will initiate losartan. 50 mg has been ordered. We will continue to monitor blood pressure. 01/27/2019-continue to monitor with addition of losartan. Do not want to drop the blood pressure too quickly. (5) Tobacco dependence Is this a current diagnosis for this admission?: Yes Plan: 01/26/2019-nicotine patch 01/27/2019-patient has been declining the nicotine patch and volunteers the information that he absolutely wants to quit smoking. This was encouraged. (6) Elevated LFTs Is this a current diagnosis for this admission?: Yes Plan: 01/26/2019-improved with IV fluids. See remarkable negative. Could be related to prior drinking. Continue to monitor. 01/27/2019-improving. Recheck tomorrow. (7) Elevated troponin Is this a current diagnosis for this admission?: Yes Plan: 01/26/2019--likely related to strain from hypertension and tachycardia. No acute EKG changes. Conservative treatment. 01/27/2019-no longer monitoring. (8) Falls Qualifiers: Encounter type: initial encounter Qualified Code(s): W19.XXXA - Unspecified fall, initial encounter Is this a current diagnosis for this admission?: Yes Plan: 01/26/2019-await physical therapy evaluation. 01/27/2019-senior living to evaluate and continue rehab. - Time Time Spent with patient: 15-24 minutes Smoking Cessation Education: 3 to 10 minutes Medications reviewed and adjusted accordingly: Yes Anticipated discharge: SNF
[2019-01-27] MEDS: LOSARTAN POTASSIUM 50 MG TABLET PO SCH (12:08)
[2019-01-27] MEDS: ATORVASTATIN CALCIUM 80 MG TABLET PO SCH (21:25)
[2019-01-28] MEDS: LABETALOL HCL INJ 20 MG/4 ML DISP.SYRIN IV PRN (00:11)
[2019-01-28] MEDS: NORMAL SALINE 1000 ML 1,000 ML IV PRN ×2 (02:24→21:24)
[2019-01-28] MEDS: HEPARIN SOD (PORCINE) 5,000 UNIT/ML 1 ML VIAL SUBCUT SCH ×3 (05:18→21:16)
[2019-01-28] MEDS: NICOTINE 14 MG/24 HR PATCH.TD24 TD SCH (09:33)
[2019-01-28] MEDS: CLOPIDOGREL BISULFATE 75 MG TABLET PO SCH (09:37)
[2019-01-28] MEDS: ASPIRIN 81 MG TABLET, ENT COATED PO SCH (09:37)
[2019-01-28] MEDS: LOSARTAN POTASSIUM 50 MG TABLET PO SCH (09:37)
--- NOTE | 2019-01-28 10:48 | PDOC PROGRESS REPORT ---
Subjective Progress Note for:: 01/28/19 Subjective:: Patient states that he has not had a lot of physical therapy however by their notes they have seen him on the and and probably just have not gotten to him yet today. He also reports that they are supposed to be getting him out of of bed to the chair. He says they have not. Again it is hard to know. He did state that he has gone to the chair on his own. He definitely has increased function of the left arm and leg but would still be extremely high risk for full if he tried to mobilize himself. Reason For Visit: CVA Physical Exam Vital Signs: Temp Pulse Resp BP Pulse Ox 97.7 F 65 17 193/77 H 97 01/28/19 07:33 01/28/19 08:00 01/28/19 08:00 01/28/19 08:00 01/28/19 08:00 Intake & Output 01/27/19 01/28/19 01/29/19 06:59 06:59 06:59 Intake Total 2946 2490 Output Total 1450 2200 Balance 1496 290 Weight 53.9 kg 54 kg General appearance: PRESENT: no acute distress, cooperative, thin, well- developed Head exam: PRESENT: atraumatic, normocephalic Eye exam: PRESENT: conjunctiva pink. ABSENT: scleral icterus Ear exam: PRESENT: normal external ear exam. ABSENT: bleeding, drainage Mouth exam: PRESENT: moist, tongue midline Respiratory exam: PRESENT: clear to auscultation kourtney, symmetrical, unlabored. ABSENT: rales, rhonchi, tachypnea, wheezes Cardiovascular exam: PRESENT: RRR, +S1, +S2. ABSENT: diastolic murmur, systolic murmur GI/Abdominal exam: PRESENT: normal bowel sounds, soft. ABSENT: distended, te nderness Rectal exam: PRESENT: deferred Gentrourinary exam: PRESENT: indwelling catheter Extremities exam: ABSENT: pedal edema Musculoskeletal exam: PRESENT: normal inspection. ABSENT: full ROM Neurological exam: PRESENT: alert, awake, oriented to person, oriented to place, oriented to situation, motor sensory deficit - The patient has noticeable increase strength and movement of the left arm. The left leg now can lift off the bed and he has slightly improved plantar and dorsiflexion. Psychiatric exam: PRESENT: flat affect. ABSENT: agitated, anxious Focused psych exam: ABSENT: delusional, restlessness Results Laboratory Results: 01/26/19 06:30 01/26/19 06:30 01/25/19 01/25/19 01/25/19 15:18 15:18 19:42 Creatine Kinase 342 H CK-MB (CK-2) 4.88 H Troponin I 0.190 0.133 01/26/19 01/26/19 01:29 06:30 Creatine Kinase CK-MB (CK-2) Troponin I 0.115 0.110 Impressions: Head MRI 01/25/19 00:00 IMPRESSION: Study degraded by motion Two small foci of acute infarct one in the right thalamus and one in the left basal ganglia/shannon radiata. Dr. Pavon was called and notified of findings at 10:25 PM central time. Atrophy with periventricular white matter disease and microvascular ischemic changes as well as areas of previous infarct Chest X-Ray 01/25/19 14:25 IMPRESSION: No acute intracranial abnormality. Head CT 01/25/19 14:25 IMPRESSION: Probable sequela of chronic microvascular ischemia without a superimposed acute intracranial abnormality. If there is persistent clinical concern for an acute CVA correlation with MRI is recommended. EVIDENCE OF ACUTE STROKE: NO. Forearm X-Ray 01/25/19 18:07 IMPRESSION: No fracture. Carotid Doppler Study 01/25/19 18:26 IMPRESSION: 1. Atherosclerosis 2. 50-69% stenosis of the proximal left ICA 3. No stenosis of the right carotid artery 4. Antegrade flow in both vertebral arteries. Assessment and Plan - Diagnosis (1) CVA (cerebral vascular accident) Qualifiers: CVA mechanism: unspecified Qualified Code(s): I63.9 - Cerebral infarction, unspecified Is this a current diagnosis for this admission?: Yes Plan: 01/26/2019-the patient has actually had 2 strokes. One on the right one on the left. Please see the MRI report. He predominately has left-sided weakness. Physical, patient and speech therapies will be seeing the patient. He thinks function in his hand is slightly improved. 01/27/2019-reviewed the case with physical therapy. He does have significant deficits of his left arm and more so with his left leg. He lives in a camper and has to walk up steps to get into the cane for he will bend to maximize recovery. 01/28/2019-the patient is responding to therapy. Increased left-sided activity as noted above. Continue therapeutic modalities. (2) Slurred speech Is this a current diagnosis for this admission?: Yes Plan: 01/26/2019-secondary to stroke. Will be seen by speech therapy. 01/27/2019-seems to be improving. Continues speech therapy 01/28/2019-speech therapy identified the dysarthria. They are going to implement exercises for improvement. (3) Left-sided weakness Is this a current diagnosis for this admission?: Yes Plan: 01/26/2019-secondary to stroke. Physical therapy has been consulted. 01/27/2019-continue physical and occupational therapy 01/28/2019-improving slowly with therapy. I have asked that the patient be out of bed for meals. (4) Hypertension Qualifiers: Hypertension type: essential hypertension Qualified Code(s): I10 - Essential (primary) hypertension Is this a current diagnosis for this admission?: Yes Plan: 01/26/2019-we will initiate losartan. 50 mg has been ordered. We will continue to monitor blood pressure. 01/27/2019-continue to monitor with addition of losartan. Do not want to drop the blood pressure too quickly. 01/28/2019-still with significant hypertension. I will add low-dose beta- oneil as well as hydrochlorothiazide 12.5 mg daily. I have also ordered low- dose hydralazine. (5) Tobacco dependence Is this a current diagnosis for this admission?: Yes Plan: 01/26/2019-nicotine patch 01/27/2019-patient has been declining the nicotine patch and volunteers the information that he absolutely wants to quit smoking. This was encouraged. (6) Elevated LFTs Is this a current diagnosis for this admission?: Yes Plan: 01/26/2019-improved with IV fluids. See remarkable negative. Could be related to prior drinking. Continue to monitor. 01/27/2019-improving. Recheck tomorrow. (7) Elevated troponin Is this a current diagnosis for this admission?: Yes Plan: 01/26/2019--likely related to strain from hypertension and tachycardia. No acute EKG changes. Conservative treatment. 01/27/2019-no longer monitoring. (8) Falls Qualifiers: Encounter type: initial encounter Qualified Code(s): W19.XXXA - Unspecified fall, initial encounter Is this a current diagnosis for this admission?: Yes Plan: 01/26/2019-await physical therapy evaluation. 01/27/2019-intermediate to evaluate and continue rehab. 01/28/2019-the falls are from his stroke. Continue physical therapy. Will like ly need intermediate at discharge. - Time Time Spent with patient: 15-24 minutes Medications reviewed and adjusted accordingly: Yes Anticipated discharge: SNF
[2019-01-28] MEDS ORDERED: HYDROCHLOROTHIAZIDE 12.5 MG TABLET PO ONE (11:15)
[2019-01-28] MEDS: HYDRALAZINE HCL 10 MG TABLET PO SCH ×2 (15:08→21:16)
[2019-01-28] MEDS ORDERED: CLONAZEPAM 1 MG TABLET PO PRN (21:07)
[2019-01-28] MEDS: ATORVASTATIN CALCIUM 80 MG TABLET PO SCH (21:15)
[2019-01-29] MEDS: HEPARIN SOD (PORCINE) 5,000 UNIT/ML 1 ML VIAL SUBCUT SCH ×2 (05:33→14:02)
[2019-01-29] MEDS: HYDRALAZINE HCL 10 MG TABLET PO SCH ×2 (05:33→15:13)
[2019-01-29] MEDS: NORMAL SALINE 1000 ML 1,000 ML IV PRN (06:12)
[2019-01-29 06:25] LABS: ABSOLUTE BASOPHILS # (AUTO) 0.1 10^3/uL (0.0-0.2); ABSOLUTE EOSINOPHILS # (AUTO) 0.1 10^3/uL (0.0-0.6); ABSOLUTE LYMPHOCYTES (AUTO) 3.6 10^3/uL (0.5-4.7); ABSOLUTE MONOCYTES (AUTO) 0.8 10^3/uL (0.1-1.4); ABSOLUTE NEUT (AUTO) 5.5 10^3/uL (1.7-8.2); BASOPHILS % (AUTO) 0.6 % (0-2); EOSINOPHILS % (AUTO) 1.4 % (0-6); HEMATOCRIT 41.4 % (37.9-51.0); HEMOGLOBIN 14.4 g/dL (13.5-17.0); LYMPHOCYTES % (AUTO) 35.7 % (13-45); MEAN CORPUSCULAR HEMOGLOBIN 31.6 pg (27.0-33.4); MEAN CORPUSCULAR HGB CONC 34.8 g/dL (32.0-36.0); MEAN CORPUSCULAR VOLUME 91 fl (80-97); PLATELET COUNT 180 10^3/uL (150-450); RED BLOOD COUNT 4.56 10^6/uL (4.35-5.55); RED CELL DISTRIBUTION WIDTH 13.6 % (11.5-14.0); SEGMENTED NEUTROPHILS % (AUTO) 54.3 % (42-78); TOTAL CELLS COUNTED % (AUTO) 100 %; WHITE BLOOD COUNT 10.1 10^3/uL (4.0-10.5)
[2019-01-29 06:44] LABS: ANION GAP 11 (5-19); BLOOD UREA NITROGEN 10 mg/dL (7-20); CARBON DIOXIDE 21 mmol/L (22-30); CHLORIDE 104 mmol/L (98-107); GLUCOSE 89 mg/dL (75-110); POTASSIUM 3.6 mmol/L (3.6-5.0)
[2019-01-29] MEDS ORDERED: HYDROCHLOROTHIAZIDE 12.5 MG TABLET PO SCH (08:00)
[2019-01-29] MEDS ORDERED: METOPROLOL SUCCINATE 25 MG TAB.SR.24H PO SCH (10:00)
[2019-01-29] MEDS: CLOPIDOGREL BISULFATE 75 MG TABLET PO SCH (10:52)
[2019-01-29] MEDS: ASPIRIN 81 MG TABLET, ENT COATED PO SCH (10:56)
[2019-01-29] MEDS: LOSARTAN POTASSIUM 50 MG TABLET PO SCH (10:56)
[2019-01-29] MEDS: NICOTINE 14 MG/24 HR PATCH.TD24 TD SCH (10:57)
--- NOTE | 2019-01-29 14:13 | PDOC DISCHARGE SUMMARY ---
Impression - Admit/DC Date/PCP Admission Date/Primary Care Provider: 01/26/19 10:00 Discharge Date: 01/29/19 - Discharge Diagnosis (1) CVA (cerebral vascular accident) Is this a current diagnosis for this admission?: Yes (2) Slurred speech Is this a current diagnosis for this admission?: Yes (3) Left-sided weakness Is this a current diagnosis for this admission?: Yes (4) Hypertension Is this a current diagnosis for this admission?: Yes (5) Tobacco dependence Is this a current diagnosis for this admission?: Yes (6) Elevated LFTs Is this a current diagnosis for this admission?: Yes (7) Elevated troponin Is this a current diagnosis for this admission?: Yes (8) Falls Is this a current diagnosis for this admission?: Yes - Assessment Summary: Acute ischemic stroke - Additional Information Resuscitation Status: Do Not Resuscitate Home Medications: No Home Medications 01/26/19 History of Present Illiness History of Present Illness: KASHMIR CASTRO is a 68 year old male Physical Exam Vital Signs: Temp Pulse Resp BP Pulse Ox 98.4 F 79 16 164/94 H 99 01/29/19 07:58 01/29/19 12:00 01/29/19 12:00 01/29/19 12:00 01/29/19 12:00 Intake & Output 01/28/19 01/29/19 01/30/19 06:59 06:59 06:59 Intake Total 2490 2720 360 Output Total 2200 5000 Balance 290 -2280 360 Weight 54 kg 52.9 kg Results Laboratory Results: WBC 10.1 10^3/uL (4.0-10.5) 01/29/19 05:55 RBC 4.56 10^6/uL (4.35-5.55) 01/29/19 05:55 Hgb 14.4 g/dL (13.5-17.0) 01/29/19 05:55 Hct 41.4 % (37.9-51.0) 01/29/19 05:55 MCV 91 fl (80-97) 01/29/19 05:55 MCH 31.6 pg (27.0-33.4) 01/29/19 05:55 MCHC 34.8 g/dL (32.0-36.0) 01/29/19 05:55 RDW 13.6 % (11.5-14.0) 01/29/19 05:55 Plt Count 180 10^3/uL (150-450) 01/29/19 05:55 Lymph % (Auto) 35.7 % (13-45) 01/29/19 05:55 [place] % (Auto) 8.0 % (3-13) 01/29/19 05:55 Eos % (Auto) 1.4 % (0-6) 01/29/19 05:55 Baso % (Auto) 0.6 % (0-2) 01/29/19 05:55 Absolute Neuts (auto) 5.5 10^3/uL (1.7-8.2) 01/29/19 05:55 Absolute Lymphs (auto) 3.6 10^3/uL (0.5-4.7) 01/29/19 05:55 Absolute Monos (auto) 0.8 10^3/uL (0.1-1.4) 01/29/19 05:55 Absolute Eos (auto) 0.1 10^3/uL (0.0-0.6) 01/29/19 05:55 Absolute Basos (auto) 0.1 10^3/uL (0.0-0.2) 01/29/19 05:55 Seg Neutrophils % 54.3 % (42-78) 01/29/19 05:55 PT 13.4 SEC (11.4-15.4) 01/25/19 15:18 INR 1.02 01/25/19 15:18 APTT 26.7 SEC (23.5-35.8) 01/25/19 15:18 Sodium 135.8 mmol/L (137-145) L 01/29/19 05:55 Potassium 3.6 mmol/L (3.6-5.0) 01/29/19 05:55 Chloride 104 mmol/L (98-107) 01/29/19 05:55 Carbon Dioxide 21 mmol/L (22-30) L 01/29/19 05:55 Anion Gap 11 (5-19) 01/29/19 05:55 BUN 10 mg/dL (7-20) 01/29/19 05:55 Creatinine 0.74 mg/dL (0.52-1.25) 01/29/19 05:55 Est GFR ( Amer) > 60 (>60) 01/29/19 05:55 Est GFR (MDRD) Non-Af > 60 (>60) 01/29/19 05:55 Glucose 89 mg/dL (75-110) 01/29/19 05:55 POC Glucose 111 mg/dL (70-110) H 01/26/19 12:00 Hemoglobin A1c % 5.4 % (4.7-6.0) 01/26/19 06:30 Calcium 9.0 mg/dL (8.4-10.2) 01/29/19 05:55 Magnesium 1.8 mg/dL (1.6-2.3) 01/29/19 05:55 Total Bilirubin 1.0 mg/dL (0.2-1.3) 01/26/19 06:30 Direct Bilirubin 0.4 mg/dL (0.0-0.4) 01/26/19 06:30 Neonat Total Bilirubin Not Reportable 01/26/19 06:30 Neonat Direct Bilirubin Not Reportable 01/26/19 06:30 Neonat Indirect Bili Not Reportable 01/26/19 06:30 AST 103 U/L (17-59) H 01/26/19 06:30 ALT 75 U/L (<50) 01/26/19 06:30 Alkaline Phosphatase 103 U/L (38-126) 01/26/19 06:30 Creatine Kinase 342 U/L (55-170) H 01/25/19 15:18 CK-MB (CK-2) 4.88 ng/mL (<4.55) H 01/25/19 15:18 Troponin I 0.110 ng/mL 01/26/19 06:30 Total Protein 6.6 g/dL (6.3-8.2) 01/26/19 06:30 Albumin 3.3 g/dL (3.5-5.0) L 01/26/19 06:30 Triglycerides 92 mg/dL (<150) 01/26/19 06:30 Cholesterol 170.01 mg/dL (0-200) 01/26/19 06:30 LDL Cholesterol Direct 121 mg/dL (<100) H 01/26/19 06:30 VLDL Cholesterol 18.0 mg/dL (10-31) 01/26/19 06:30 HDL Cholesterol 34 mg/dL (>40) L 01/26/19 06:30 Lipase 198.6 U/L (23-300) 01/25/19 15:18 Urine Color YELLOW 01/25/19 19:39 Urine Appearance CLEAR 01/25/19 19:39 Urine pH 7.0 (5.0-9.0) 01/25/19 19:39 Ur Specific [place] 1.016 01/25/19 19:39 Urine Protein 30 mg/dL (NEGATIVE) H 01/25/19 19:39 Urine Glucose (UA) NEGATIVE mg/dL (NEGATIVE) 01/25/19 19:39 Urine Ketones NEGATIVE mg/dL (NEGATIVE) 01/25/19 19:39 Urine Blood NEGATIVE (NEGATIVE) 01/25/19 19:39 Urine Nitrite (Reflex) NEGATIVE (NEGATIVE) 01/25/19 19:39 Urine Bilirubin NEGATIVE (NEGATIVE) 01/25/19 19:39 Urine Urobilinogen NEGATIVE mg/dL (<2.0) 01/25/19 19:39 Leukocyte Esterase Rfl NEGATIVE (NEGATIVE) 01/25/19 19:39 Urine RBC (Auto) 1 /HPF 01/25/19 19:39 Urine WBC (Reflex) < 1 /HPF 01/25/19 19:39 Urine Mucus (Auto) RARE /LPF 01/25/19 19:39 Urine Ascorbic Acid NEGATIVE (NEGATIVE) 01/25/19 19:39 Urine Opiates Screen NEGATIVE 01/25/19 19:39 Urine Methadone Screen NEGATIVE 01/25/19 19:39 Ur Barbiturates Screen NEGATIVE 01/25/19 19:39 Ur Phencyclidine Scrn NEGATIVE 01/25/19 19:39 Ur Amphetamines Screen NEGATIVE 01/25/19 19:39 U Benzodiazepines Scrn NEGATIVE 01/25/19 19:39 Urine Cocaine Screen NEGATIVE 01/25/19 19:39 U Marijuana (THC) Screen UNCONFIRMED POSITIVE 01/25/19 19:39 Serum Alcohol < 10 mg/dL (NONE DETECTED) 01/25/19 15:18 01/25/19 01/25/19 01/26/19 15:18 19:42 01:29 CK-MB (CK-2) 4.88 H Troponin I 0.190 0.133 0.115 01/26/19 06:30 CK-MB (CK-2) Troponin I 0.110 Impressions: Head MRI 01/25/19 00:00 IMPRESSION: Study degraded by motion Two small foci of acute infarct one in the right thalamus and one in the left basal ganglia/shannon radiata. Dr. Pavon was called and notified of findings at 10:25 PM central time. Atrophy with periventricular white matter disease and microvascular ischemic changes as well as areas of previous infarct Chest X-Ray 01/25/19 14:25 IMPRESSION: No acute intracranial abnormality. Head CT 01/25/19 14:25 IMPRESSION: Probable sequela of chronic microvascular ischemia without a superimposed acute intracranial abnormality. If there is persistent clinical concern for an acute CVA correlation with MRI is recommended. EVIDENCE OF ACUTE STROKE: NO. Forearm X-Ray 01/25/19 18:07 IMPRESSION: No fracture. Carotid Doppler Study 01/25/19 18:26 IMPRESSION: 1. Atherosclerosis 2. 50-69% stenosis of the proximal left ICA 3. No stenosis of the right carotid artery 4. Antegrade flow in both vertebral arteries.
--- NOTE | 2019-01-29 14:26 | PDOC TRANSFER SUMMARY ---
Impression - Admit/DC Date/PCP Admission Date/Primary Care Provider: 01/26/19 10:00 Discharge Date: 01/29/19 - Discharge Diagnosis (1) CVA (cerebral vascular accident) Is this a current diagnosis for this admission?: Yes (2) Slurred speech Is this a current diagnosis for this admission?: Yes (3) Left-sided weakness Is this a current diagnosis for this admission?: Yes (4) Hypertension Is this a current diagnosis for this admission?: Yes (5) Tobacco dependence Is this a current diagnosis for this admission?: Yes (6) Elevated LFTs Is this a current diagnosis for this admission?: Yes (7) Elevated troponin Is this a current diagnosis for this admission?: Yes (8) Falls Is this a current diagnosis for this admission?: Yes - Assessment Summary: Patient with an acute ischemic stroke with left-sided weakness. He has underlying hypertension. - Additional Information Resuscitation Status: Do Not Resuscitate Discharge Diet: Cardiac Discharge Activity: Activity As Tolerated, Other - Advance per physical therapy Home Medications: Acetaminophen [Tylenol 325 mg Tablet] 650 mg PO Q4HP PRN tablet 01/29/19 Aspirin [Ecotrin 81 mg EC Tablet] 81 mg PO DAILY tabec 01/29/19 Atorvastatin Calcium [Lipitor 80 mg Tablet] 80 mg PO QHS tablet 01/29/19 Clopidogrel Bisulfate [Plavix 75 mg Tablet] 75 mg PO DAILY tablet 01/29/19 Docusate Sodium [Colace 100 mg Capsule] 100 mg PO BIDP PRN capsule 01/29/19 Hydralazine HCl [Apresoline 10 mg Tablet] 10 mg PO Q8 tablet 01/29/19 Hydrochlorothiazide [Hydrodiuril 12.5 mg Tablet] 12.5 mg PO QAM tablet 01/29/19 Losartan Potassium [Cozaar 50 mg Tablet] 50 mg PO DAILY tablet 01/29/19 Metoprolol Succinate [Toprol Xl 25 mg Tab.sr] 25 mg PO DAILY tab.sr.24h 01/29/19 Nicotine [Nicoderm 14 mg/24 Hr Transdermal Patch] 1 each TD DAILY patch.td24 01/29/19 History of Present Illiness History of Present Illness: KASHMIR CASTRO is a 68 year old male with limited past medical history including hypertension. He has not seen a physician regularly but continues to smoke consistently. He reportedly had a fall at home. He was transferred to the emergency department and it was found to have an acute ischemic stroke with left-sided weakness. He was referred to the hospital service for admission. Hospital Course Hospital Course: The patient had an unremarkable hospital course. We do not know what is over the last several days his left-sided weakness are slowly improving with therapy. The patient does have some confusion. We do not have a baseline state prior to admission. He is regaining function in his left arm and leg. He is somewhat disinhibited. He does exhibit short-term memory deficits. Sometimes he does not remember physical therapy working with him. He is definitely benefiting from therapy and will continue at the [facility] facility. He is also on statin therapy antiplatelet therapy and antihypertensives. Follow-up Physical Exam Vital Signs: Temp Pulse Resp BP Pulse Ox 98.4 F 79 16 164/94 H 99 01/29/19 07:58 01/29/19 12:00 01/29/19 12:00 01/29/19 12:00 01/29/19 12:00 Intake & Output 01/28/19 01/29/19 01/30/19 06:59 06:59 06:59 Intake Total 2490 2720 360 Output Total 2200 5000 Balance 290 -2280 360 Weight 54 kg 52.9 kg General appearance: PRESENT: no acute distress, cooperative - Limited cooperativeness, thin, well-developed Head exam: PRESENT: atraumatic, normocephalic Mouth exam: PRESENT: moist, tongue midline Respiratory exam: PRESENT: clear to auscultation kourtney, symmetrical, unlabored. ABSENT: chest wall tenderness, rales, rhonchi, tachypnea, wheezes Cardiovascular exam: PRESENT: RRR, +S1, +S2. ABSENT: diastolic murmur, systolic murmur GI/Abdominal exam: PRESENT: normal bowel sounds, soft. ABSENT: distended, tenderness Gentrourinary exam: ABSENT: indwelling catheter Extremities exam: ABSENT: pedal edema Musculoskeletal exam: PRESENT: normal inspection, other - Decreased muscle mass. ABSENT: ambulatory, deformity Neurological exam: PRESENT: alert, awake, oriented to person, oriented to place, oriented to time, oriented to situation, motor sensory deficit - Patient does have some left hand flexion with limited extract wringer strength. Plantar and dorsiflexion are decreased but better than on admission. He is able to raise his leg off the bed. Psychiatric exam: PRESENT: flat affect. ABSENT: agitated, anxious Focused psych exam: ABSENT: delusional, restlessness Results Laboratory Results: WBC 10.1 10^3/uL (4.0-10.5) 01/29/19 05:55 RBC 4.56 10^6/uL (4.35-5.55) 01/29/19 05:55 Hgb 14.4 g/dL (13.5-17.0) 01/29/19 05:55 Hct 41.4 % (37.9-51.0) 01/29/19 05:55 MCV 91 fl (80-97) 01/29/19 05:55 MCH 31.6 pg (27.0-33.4) 01/29/19 05:55 MCHC 34.8 g/dL (32.0-36.0) 01/29/19 05:55 RDW 13.6 % (11.5-14.0) 01/29/19 05:55 Plt Count 180 10^3/uL (150-450) 01/29/19 05:55 Lymph % (Auto) 35.7 % (13-45) 01/29/19 05:55 [place] % (Auto) 8.0 % (3-13) 01/29/19 05:55 Eos % (Auto) 1.4 % (0-6) 01/29/19 05:55 Baso % (Auto) 0.6 % (0-2) 01/29/19 05:55 Absolute Neuts (auto) 5.5 10^3/uL (1.7-8.2) 01/29/19 05:55 Absolute Lymphs (auto) 3.6 10^3/uL (0.5-4.7) 01/29/19 05:55 Absolute Monos (auto) 0.8 10^3/uL (0.1-1.4) 01/29/19 05:55 Absolute Eos (auto) 0.1 10^3/uL (0.0-0.6) 01/29/19 05:55 Absolute Basos (auto) 0.1 10^3/uL (0.0-0.2) 01/29/19 05:55 Seg Neutrophils % 54.3 % (42-78) 01/29/19 05:55 PT 13.4 SEC (11.4-15.4) 01/25/19 15:18 INR 1.02 01/25/19 15:18 APTT 26.7 SEC (23.5-35.8) 01/25/19 15:18 Sodium 135.8 mmol/L (137-145) L 01/29/19 05:55 Potassium 3.6 mmol/L (3.6-5.0) 01/29/19 05:55 Chloride 104 mmol/L (98-107) 01/29/19 05:55 Carbon Dioxide 21 mmol/L (22-30) L 01/29/19 05:55 Anion Gap 11 (5-19) 01/29/19 05:55 BUN 10 mg/dL (7-20) 01/29/19 05:55 Creatinine 0.74 mg/dL (0.52-1.25) 01/29/19 05:55 Est GFR ( Amer) > 60 (>60) 01/29/19 05:55 Est GFR (MDRD) Non-Af > 60 (>60) 01/29/19 05:55 Glucose 89 mg/dL (75-110) 01/29/19 05:55 POC Glucose 111 mg/dL (70-110) H 01/26/19 12:00 Hemoglobin A1c % 5.4 % (4.7-6.0) 01/26/19 06:30 Calcium 9.0 mg/dL (8.4-10.2) 01/29/19 05:55 Magnesium 1.8 mg/dL (1.6-2.3) 01/29/19 05:55 Total Bilirubin 1.0 mg/dL (0.2-1.3) 01/26/19 06:30 Direct Bilirubin 0.4 mg/dL (0.0-0.4) 01/26/19 06:30 Neonat Total Bilirubin Not Reportable 01/26/19 06:30 Neonat Direct Bilirubin Not Reportable 01/26/19 06:30 Neonat Indirect Bili Not Reportable 01/26/19 06:30 AST 103 U/L (17-59) H 01/26/19 06:30 ALT 75 U/L (<50) 01/26/19 06:30 Alkaline Phosphatase 103 U/L (38-126) 01/26/19 06:30 Creatine Kinase 342 U/L (55-170) H 01/25/19 15:18 CK-MB (CK-2) 4.88 ng/mL (<4.55) H 01/25/19 15:18 Troponin I 0.110 ng/mL 01/26/19 06:30 Total Protein 6.6 g/dL (6.3-8.2) 01/26/19 06:30 Albumin 3.3 g/dL (3.5-5.0) L 01/26/19 06:30 Triglycerides 92 mg/dL (<150) 01/26/19 06:30 Cholesterol 170.01 mg/dL (0-200) 01/26/19 06:30 LDL Cholesterol Direct 121 mg/dL (<100) H 01/26/19 06:30 VLDL Cholesterol 18.0 mg/dL (10-31) 01/26/19 06:30 HDL Cholesterol 34 mg/dL (>40) L 01/26/19 06:30 Lipase 198.6 U/L (23-300) 01/25/19 15:18 Urine Color YELLOW 01/25/19 19:39 Urine Appearance CLEAR 01/25/19 19:39 Urine pH 7.0 (5.0-9.0) 01/25/19 19:39 Ur Specific [place] 1.016 01/25/19 19:39 Urine Protein 30 mg/dL (NEGATIVE) H 01/25/19 19:39 Urine Glucose (UA) NEGATIVE mg/dL (NEGATIVE) 01/25/19 19:39 Urine Ketones NEGATIVE mg/dL (NEGATIVE) 01/25/19 19:39 Urine Blood NEGATIVE (NEGATIVE) 01/25/19 19:39 Urine Nitrite (Reflex) NEGATIVE (NEGATIVE) 01/25/19 19:39 Urine Bilirubin NEGATIVE (NEGATIVE) 01/25/19 19:39 Urine Urobilinogen NEGATIVE mg/dL (<2.0) 01/25/19 19:39 Leukocyte Esterase Rfl NEGATIVE (NEGATIVE) 01/25/19 19:39 Urine RBC (Auto) 1 /HPF 01/25/19 19:39 Urine WBC (Reflex) < 1 /HPF 01/25/19 19:39 Urine Mucus (Auto) RARE /LPF 01/25/19 19:39 Urine Ascorbic Acid NEGATIVE (NEGATIVE) 01/25/19 19:39 Urine Opiates Screen NEGATIVE 01/25/19 19:39 Urine Methadone Screen NEGATIVE 01/25/19 19:39 Ur Barbiturates Screen NEGATIVE 01/25/19 19:39 Ur Phencyclidine Scrn NEGATIVE 01/25/19 19:39 Ur Amphetamines Screen NEGATIVE 01/25/19 19:39 U Benzodiazepines Scrn NEGATIVE 01/25/19 19:39 Urine Cocaine Screen NEGATIVE 01/25/19 19:39 U Marijuana (THC) Screen UNCONFIRMED POSITIVE 01/25/19 19:39 Serum Alcohol < 10 mg/dL (NONE DETECTED) 01/25/19 15:18 01/25/19 01/25/19 01/26/19 15:18 19:42 01:29 CK-MB (CK-2) 4.88 H Troponin I 0.190 0.133 0.115 01/26/19 06:30 CK-MB (CK-2) Troponin I 0.110 Impressions: Head MRI 01/25/19 00:00 IMPRESSION: Study degraded by motion Two small foci of acute infarct one in the right thalamus and one in the left basal ganglia/shannon radiata. Dr. Pavon was called and notified of findings at 10:25 PM central time. Atrophy with periventricular white matter disease and microvascular ischemic changes as well as areas of previous infarct Chest X-Ray 01/25/19 14:25 IMPRESSION: No acute intracranial abnormality. Head CT 01/25/19 14:25 IMPRESSION: Probable sequela of chronic microvascular ischemia without a superimposed acute intracranial abnormality. If there is persistent clinical concern for an acute CVA correlation with MRI is recommended. EVIDENCE OF ACUTE STROKE: NO. Forearm X-Ray 01/25/19 18:07 IMPRESSION: No fracture. Carotid Doppler Study 01/25/19 18:26 IMPRESSION: 1. Atherosclerosis 2. 50-69% stenosis of the proximal left ICA 3. No stenosis of the right carotid artery 4. Antegrade flow in both vertebral arteries. Plan Health Concerns: The patient's ability to achieve tobacco cessation and compliance. Is not known at this time where his recovery will plateau. Plan of Treatment: The patient will transfer to [facility]. He will need monitoring for his blood pressure. Encourage tobacco cessation and ongoing physical therapy and Occupational Therapy. Goals: Maximize recovery from his stroke now enough to achieve independence Time Spent: Greater than 30 Minutes Stroke Is this a Stroke Patient?: Yes Stroke Pt being discharged on Anti-thrombolytic therapy?: Yes Stroke Pt being discharged on Anti-coagulation therapy?: No Reason(s) for not prescribing Anti-coagulation therapy:: Not indicated Stroke Pt being discharged on Statins?: Yes Acute Heart Failure - Is this a Heart Failure Patient?: No
[2019-01-29 15:24] VITALS: BP 180/87
== END 2019-01-29 17:00 | DRG 65 ==
LOC: ER 14:02 → INTOOBSV 18:31 → EH 18:31 → 3S 21:34 → OBSVTOIN 01-26 10:00
PROVIDERS: ADMIT Internal Medicine; ATTEND Internal Medicine
DX: I63.412 Cerebral infarction due to embolism of left middle cerebral artery (principal); E87.1 Hypo-osmolality and hyponatremia; G81.94 Hemiplegia, unspecified affecting left nondominant side; R47.81 Slurred speech; E86.0 Dehydration; I10 Essential (primary) hypertension; R79.89 Other specified abnormal findings of blood chemistry; K21.9 Gastro-esophageal reflux disease without esophagitis; F17.210 Nicotine dependence, cigarettes, uncomplicated; Z66 Do not resuscitate; Z60.2 Problems related to living alone
CPT/HCPCS: 36415; 70450; 70551; 71045; 80048; 80053; 80061; 80307; 81001; 82550; 82553; 82962; 83036; 83690; 83735; 84484; 85025; 85027; 85610; 85730; 93005; 93010; 93880; 99285; G0378; J0360; J1644; J2405; J3490; J7030

== ENCOUNTER 2019-04-16 15:34 | Emergency (ER) | payer MEDICARE ==
[2019-04-16 16:07] LABS: ABSOLUTE BASOPHILS # (AUTO) 0.1 10^3/uL (0.0-0.2); ABSOLUTE EOSINOPHILS # (AUTO) 0.1 10^3/uL (0.0-0.6); ABSOLUTE LYMPHOCYTES (AUTO) 3.6 10^3/uL (0.5-4.7); ABSOLUTE MONOCYTES (AUTO) 0.9 10^3/uL (0.1-1.4); ABSOLUTE NEUT (AUTO) 7.5 10^3/uL (1.7-8.2); BASOPHILS % (AUTO) 0.6 % (0-2); EOSINOPHILS % (AUTO) 0.7 % (0-6); HEMATOCRIT 42.2 % (37.9-51.0); HEMOGLOBIN 14.4 g/dL (13.5-17.0); LYMPHOCYTES % (AUTO) 29.9 % (13-45); MEAN CORPUSCULAR HEMOGLOBIN 30.9 pg (27.0-33.4); MEAN CORPUSCULAR HGB CONC 34.1 g/dL (32.0-36.0); MEAN CORPUSCULAR VOLUME 91 fl (80-97); MONOCYTES % (AUTO) 7.6 % (3-13); PLATELET COUNT 231 10^3/uL (150-450); RED BLOOD COUNT 4.66 10^6/uL (4.35-5.55); RED CELL DISTRIBUTION WIDTH 14.3 % (11.5-14.0); SEGMENTED NEUTROPHILS % (AUTO) 61.2 % (42-78); TOTAL CELLS COUNTED % (AUTO) 100 %; WHITE BLOOD COUNT 12.2 10^3/uL (4.0-10.5)
[2019-04-16 16:31] LABS: ALBUMIN 4.3 g/dL (3.5-5.0); ALKALINE PHOSPHATASE 130 U/L (38-126); ANION GAP 12 (5-19); ASPARTATE AMINO TRANSFERASE 118 U/L (17-59); BILIRUBIN,DIRECT 0.5 mg/dL (0.0-0.4); BILIRUBIN,TOTAL 0.9 mg/dL (0.2-1.3); BLOOD UREA NITROGEN 20 mg/dL (7-20); CALCIUM 9.8 mg/dL (8.4-10.2); CARBON DIOXIDE 31 mmol/L (22-30); CHLORIDE 92 mmol/L (98-107); GLUCOSE 88 mg/dL (75-110); POTASSIUM 3.8 mmol/L (3.6-5.0); TOTAL PROTEIN 8.2 g/dL (6.3-8.2)
[2019-04-16 16:32] LABS: ALCOHOL < 10 mg/dL (NONE DETECTED)
[2019-04-16 16:56] LABS: APPEARANCE,URINE CLOUDY; BILIRUBIN,URINE NEGATIVE (NEGATIVE); COLOR,URINE AMBER; GLUCOSE, URINE NEGATIVE (NEGATIVE); KETONES,URINE NEGATIVE (NEGATIVE); LEUKOCYTE ESTERASE,URINE LARGE (NEGATIVE); NITRITE,URINE NEGATIVE (NEGATIVE); PROTEIN,URINE 30 mg/dL (NEGATIVE); URINE SPECIFIC GRAVITY 1.017; UROBILINOGEN,URINE NEGATIVE mg/dL (<2.0)
[2019-04-16 17:18] LABS: URINE AMPHETAMINES SCREEN NEGATIVE; URINE BARBITURATES SCREEN NEGATIVE; URINE BENZODIAZEPINES SCREEN NEGATIVE; URINE COCAINE SCREEN NEGATIVE; URINE METHADONE SCREEN NEGATIVE; URINE PHENCYCLIDINE SCREEN NEGATIVE
[2019-04-16 17:22] LABS: URINE MARIJUANA (THC) SCREEN UNCONFIRMED POSITIVE
--- NOTE | 2019-04-16 17:36 | RADIOLOGY REPORT (SQ) ---
EXAM DESCRIPTION: CT HEAD WITHOUT COMPLETED DATE/TIME: 04/16/2019 5:24 pm REASON FOR STUDY: fall COMPARISON: 01/25/2019 TECHNIQUE: Axial images acquired through the brain without intravenous contrast. Images reviewed wi th bone, brain and subdural windows. Additional sagittal and coronal reconstructions were generated. Images stored on PACS. All CT scanners at this facility use dose modulation, iterative reconstruction, and/or weight based d osing when appropriate to reduce radiation dose to as low as reasonably achievable (ALARA). [facility]: Dose Right [facility]: CareDose [facility]: Dose Right [facility]: Teradose 4D [facility]: Smart [employer] RADIATION DOSE: CT Rad equipment meets quality standard of care and radiation dose reduction techniq ues were employed. CTDIvol: 18.3 - 55.2 mGy. DLP: 2391 mGy-cm.mGy. LIMITATIONS: None. FINDINGS: VENTRICLES: Prominent. CEREBRUM: No masses. No hemorrhage. No midline shift. Areas of low density in the white matter mos t likely due to chronic micro-vascular ischemic change. No evidence for acute infarction. CEREBELLUM: No masses. No hemorrhage. No alteration of density. No evidence for acute infarction. EXTRAAXIAL SPACES: Age-related involutional change. No fluid collections. No masses. ORBITS AND GLOBE: No intra- or extraconal masses. Normal contour of globe without masses. CALVARIUM: No fracture. PARANASAL SINUSES: No fluid or mucosal thickening. SOFT TISSUES: No mass or hematoma. OTHER: No other significant finding. IMPRESSION: CHRONIC CHANGES OF ATROPHY AND MICROVASCULAR ISCHEMIA. NO ACUTE PROCESS. EVIDENCE OF ACUTE STROKE: NO. TECHNICAL DOCUMENTATION: JOB ID: [id number] Quality ID # [id number]: Final reports with documentation of one or more dose reduction techniques (e.g., Au tomated exposure control, adjustment of the mA and/or kV according to patient size, use of iterative reconstruction technique) 2010 [employer]- All Rights Reserved Reading location - IP/workstation name: [email or web address]
--- NOTE | 2019-04-16 17:38 | RADIOLOGY REPORT (SQ) ---
EXAM DESCRIPTION: CT CERVICAL SPINE WITHOUT COMPLETED DATE/TIME: 04/16/2019 5:24 pm REASON FOR STUDY: fall COMPARISON: None. TECHNIQUE: Axial images acquired through the cervical spine without intravenous contrast. Images re viewed with lung, soft tissue and bone windows. Reconstructed coronal and sagittal MPR images review ed. Images stored on PACS. All CT scanners at this facility use dose modulation, iterative reconstruction, and/or weight based d osing when appropriate to reduce radiation dose to as low as reasonably achievable (ALARA). [facility]: Dose Right [facility]: CareDose [facility]: Dose Right [facility]: Teradose 4D [facility]: [employer] RADIATION DOSE: mGy. LIMITATIONS: None. FINDINGS: ALIGNMENT: Degenerative retrolisthesis C5 on C6. MINERALIZATION: Normal. VERTEBRAL BODIES: There is a central compression fracture T2. Age indeterminate. DISCS: Degenerative disc disease most prominent C5-6 and C6-7. FACETS, LATERAL MASSES, POSTERIOR ELEMENTS: No fractures. No dislocation. No acute findings. HARDWARE: None in the spine. VISUALIZED RIBS: No fractures. LUNG APICES AND SOFT TISSUES: No significant or acute findings. OTHER: No other significant finding. IMPRESSION: No acute findings in the cervical spine. Age indeterminate central compression fracture at T2. TECHNICAL DOCUMENTATION: JOB ID: [id number] Quality ID # [id number]: Final reports with documentation of one or more dose reduction techniques (e.g., Au tomated exposure control, adjustment of the mA and/or kV according to patient size, use of iterative reconstruction technique) 2010 [employer]- All Rights Reserved Reading location - IP/workstation name: [email or web address]
[2019-04-16] MEDS ORDERED: CEFTRIAXONE INJ 1000 MG VIAL IV ONE (20:50)
[2019-04-16] MEDS ORDERED: OXYCODONE-ACETAMINOPHEN 5-325 MG TABLET PO ONE (20:50)
--- NOTE | 2019-04-16 20:54 | RADIOLOGY REPORT (SQ) ---
XR CHEST 2 VIEWS EXAM DATE: 04/16/2019 8:20 PM [employer] HISTORY: AMS. COMPARISON: 01/25/2019 FINDINGS: Normal heart size without pulmonary edema. No focal consolidation is identified. No pleural effusions or pneumothorax. No acute bony findings are seen. IMPRESSION: No evidence of acute cardiopulmonary disease.
--- NOTE | 2019-04-16 20:57 | ER Document Report ---
ED General - General Chief Complaint: Fall Stated Complaint: ALTERED MENTAL STATUS Time Seen by Provider: 04/16/19 20:14 Primary Care Provider: ИРИНА AGUILAR MD [NO LOCAL MD] - Follow up as needed MAL HARRISON MD [NO LOCAL MD] - Follow up as needed VIOLETA NIX MD [COMMUNITY BASED STAFF] - Follow up as needed LASHON NERI DO [NO LOCAL MD] - Follow up in 3-5 days Notes: 69-year-old male presents with altered mental status per rn social work who called EMS. Patient was found with hematoma to left forehead. Patient states he fell yesterday and states he has pain to his lower back. Patient is asking for Percocet. Patient knows where he is, knows who the president is, and is able to tell me what happened. Patient also states he thinks he may have a urinary tract infection because he is having some burning with urination. Patient denies any chest pain, shortness of breath, fever. TRAVEL OUTSIDE OF THE [place] IN LAST 30 DAYS: No - Related Data Allergies/Adverse Reactions: No Known Allergies Allergy (Unverified 11/04/18 11:46) Past Medical History - Social History Smoking Status: Unknown if Ever Smoked Family History: Reviewed & Not Pertinent Patient has suicidal ideation: No Patient has homicidal ideation: No - Past Medical History Cardiac Medical History: Reports: Hx Hypercholesterolemia, Hx Hypertension Renal/ Medical History: Denies: Hx Peritoneal Dialysis GI Medical History: Reports: Hx Gastroesophageal Reflux Disease Past Surgical History: Reports: Hx Orthopedic Surgery Review of Systems - Review of Systems Notes: Constitutional: Negative for fever. HENT: Negative for sore throat. Eyes: Negative for visual changes. Cardiovascular: Negative for chest pain. Respiratory: Negative for shortness of breath. Gastrointestinal: Negative for abdominal pain, vomiting or diarrhea. Genitourinary: Positive for dysuria. Musculoskeletal: Positive for back pain. Skin: Negative for rash. Neurological: Negative for headaches, weakness or numbness. 10 point ROS negative except as marked above and in HPI. Physical Exam - Vital signs Vitals: Pulse Ox 96 04/16/19 15:42 - Notes Notes: GENERAL: Well-appearing, well-nourished and in no acute distress. HEAD: Atraumatic, normocephalic. EYES: Pupils equal round and reactive to light, extraocular movements intact, sclera anicteric, conjunctiva are normal. NECK: Normal range of motion, supple without lymphadenopathy or JVD. LUNGS: Breath sounds clear to auscultation bilaterally and equal. No wheezes rales or rhonchi. HEART: Regular rate and rhythm without murmurs, rubs or gallops. ABDOMEN: Soft, nontender. No guarding, no rebound. No masses appreciated. BACK: No spinal tenderness to cervical or thoracic vertebrae. Pt has spinal tenderness to lower lumbar vertebrae. EXTREMITIES: Normal range of motion, no pitting or edema. No clubbing or cyanosis. NEUROLOGICAL: Cranial nerves II through XII grossly intact. Normal speech, normal gait. PSYCH: Normal mood, normal affect. SKIN: Warm, Dry, normal turgor, no rashes or lesions noted. Course - Re-evaluation Re-evalutation: 04/16/19 Nontoxic, well appearing 69 y/o male presents for possible AMS and fall yesterday. Pt states he slipped and fell hitting his lower back and left forehead yesterday. Pt also states he is having dysuria and lower back pain. Pt is alert to self, place, and the assistant vice president ([email or web address]) however states it is 1985. Pt is not febrile. Mildly elevated leukocytosis. UA shows urinary tract infection. Rocephin [address]m ordered[address] CXR negative. CT head is negative. CT C spine shows a compression fracture at T2 however pt has no point tenderness over T2. Lactic also added. L spine XR added. Lactic WNL. L spine x-ray neg however CT L spine recommended by radiologist. CT L spine shows no fractures. Pt wants to go home. Pt prescribed Keflex and given strict return precautions. Pt is able to ambulate without difficulty. Pt also given close follow up with PCP and neurosurgeon for age indeterminate compression fracture at T2. Pt voices understanding and agrees with plan of care. - Vital Signs Vital signs: Temp Pulse Resp BP Pulse Ox 98.0 F 18 160/88 H 95 04/17/19 01:00 04/16/19 22:01 04/16/19 23:01 04/16/19 17:01 - Laboratory Result Diagrams: 04/16/19 15:46 04/16/19 15:46 Laboratory results interpreted by me: 04/16/19 04/16/19 04/16/19 15:46 15:46 15:46 WBC 12.2 H RDW 14.3 H Sodium 135.4 L Chloride 92 L Carbon Dioxide 31 H Direct Bilirubin 0.5 H AST 118 H Alkaline Phosphatase 130 H Urine Protein 30 H Urine Blood SMALL H Ur Leukocyte Esterase LARGE H Discharge - Discharge Clinical Impression: Acute UTI Low back pain Qualifiers: Chronicity: unspecified Back pain laterality: unspecified Sciatica presence: unspecified whether sciatica present Qualified Code(s): M54.5 - Low back pain Fall Qualifiers: Encounter type: initial encounter Qualified Code(s): W19.XXXA - Unspecified fall, initial encounter Condition: Stable Disposition: HOME, SELF-CARE Instructions: Cephalexin ([facility]) Additional Instructions: Your work-up today showed a urinary tract infection. Your CT head was normal. Your CT of your neck showed a compression fracture at T2 however you were not tender over this area. Follow up with neurosurgeon listed in 2-[address] of your lower back did not show any fractures. Please take antibiotics as prescribed and finish all doses even if you feel better unless we call you to change it based off of your urine culture. Please follow-up with your primary c are doctor in 2 to 3 days. Return immediately to ER if you start having any worsening symptoms, including urinating blood, difficulty with urinating, confusion, fever, chest pain, shortness of breath, nausea/vomiting, abdominal pain, weakness, numbness to your private area, difficulty with defecating, or any other symptoms that are concerning to you. Prescriptions: Cephalexin Monohydrate [Keflex 500 mg Capsule] 500 mg PO Q6H 5 Days #40 capsule Referrals: LASHON NERI DO [NO LOCAL MD] - Follow up in 3-5 days VIOLETA NIX MD [COMMUNITY BASED STAFF] - Follow up as needed ИРИНА AGUILAR MD [NO LOCAL MD] - Follow up as needed MAL HARRISON MD [NO LOCAL MD] - Follow up as needed
--- NOTE | 2019-04-16 22:10 | RADIOLOGY REPORT (SQ) ---
EXAM DESCRIPTION: X-RAY Lumbar Spine -three views CLINICAL HISTORY: Status post fall, presenting with pain COMPARISON: None TECHNIQUE: Three -views of the lumbar spine. FINDINGS: Five lumbar-type vertebral bodies. There is no significant loss of the vertebral body height. Intervertebral disc spaces are most likely maintained. The paravertebral soft tissues are unremarkable. There is no spondylolisthesis or spondylolysis. Mild degenerative changes are characterized by mild osteophytosis, and facet arthropathy of the lower lumbar spine. Note that the sacrum is incompletely evaluated on this exam. Atherosclerotic vascular disease is noted. Calcifications overlying the upper abdomen bilaterally. Findings are nonspecific and could represent material within the bowel. Possibility of underlying renal stone is not excluded. IMPRESSION: No definite focal alignment abnormality or severe compression deformity. However, please note, plain radiographs may not be sensitive to identify acute traumatic injury. Consider CT and/or MRI for further evaluation if clinically indicated.
[2019-04-16 23:05] VITALS: BP 160/88
--- NOTE | 2019-04-17 00:10 | RADIOLOGY REPORT (SQ) ---
EXAM DESCRIPTION: CT LUMBAR SPINE WITHOUT IV CONTRAST COMPLETED DATE/TME: 04/16/2019 22:53 CLINICAL HISTORY: 69 years, Male, L spine pain, fall COMPARISON: None. TECHNIQUE: Images stored on PACS. All CT scanners at this facility use dose modulation, iterative reconstruction, and/or weight based dosing when appropriate to reduce radiation dose to as low as reasonably achievable (ALARA). [facility]: Dose Right [facility]: CareDose [facility]: Dose Right [facility]: Teradose 4D [facility]: [employer] LIMITATIONS: None. FINDINGS: Imaging obtained from T11-T12 through upper sacrum. No acute displaced fracture is identified. Alignment is anatomic. There is mild motion artifact. Mild age-appropriate osteoarthritis. L1-L2, no significant disease L2-L3 mild broad-based disc bulging. No significant acquired spinal canal stenosis. L3-L4 mild broad-based disc bulging. Mild hypertrophic changes posteriorly. No significant central canal stenosis. L4-L5 broad-based disc bulging with osteophyte formation. Hypertrophic changes posteriorly. Mild acquired spinal canal stenosis. Disc does appear to impinge upon the neural foramen bilaterally but does not appear to be abutting the exiting bilateral L4 nerve roots. L5-S1, no significant disease. Surrounding soft tissues demonstrate diverticulosis of the sigmoid colon. Aortic calcification without aneurysmal disease. IMPRESSION: Osteoporosis. No acute fracture TECHNICAL DOCUMENTATION: Quality ID # [id number]: Final reports with documentation of one or more dose reduction techniques (e.g., Automated exposure control, adjustment of the mA and/or kV according to patient size, use of iterative reconstruction technique) copyright 2011 [employer]- All Rights Reserved
[2019-04-17] MEDS ORDERED: NICOTINE 21 MG/24 HR PATCH.TD24 TD ONE (00:46)
--- NOTE | 2019-04-17 23:20 | EKG REPORT ---
SEVERITY:- BORDERLINE ECG - SINUS RHYTHM BORDERLINE PROLONGED QT INTERVAL : Confirmed by: Nancy Ballard 17-Apr-2019 23:20:07
== END 2019-04-17 01:46 | disposition home or self-care (01) ==
LOC: ER 15:34
DX: N39.0 Urinary tract infection, site not specified (principal); M54.5 Low back pain; S22.029A Unspecified fracture of second thoracic vertebra, initial encounter for closed fracture; S00.83XA Contusion of other part of head, initial encounter; W01.190A Fall on same level from slipping, tripping and stumbling with subsequent striking against furniture, initial encounter; I10 Essential (primary) hypertension
CPT/HCPCS: 93005; 36415; 87040; 87086; 82962; 80307 ×2; 83605; 83735; 85025; 87077; 87088; 80053; 81001; 87186; 87150 ×26; 71046; 72100; 70450; 72125; 72131; 93010; A9270; J0696; 96365; 99285